=== PATIENT | male | born 1965 | race Hispanic/Latino ===

== ENCOUNTER 2019-04-28 17:11 | Emergency (ER) | payer BC ==
[~2019-04-28] VITALS: Ht 165.1 cm; Wt 72.6 kg
[2019-04-28] MEDS ORDERED: MECLIZINE HCL 12.5 MG TAB PO ONE (18:15)
[2019-04-28] MEDS ORDERED: SODIUM CHLORIDE 0.9% 1000ML 1,000 ML IV SCH (18:15)
[2019-04-28] MEDS ORDERED: PREDNISONE20 MG PO (18:27)
[2019-04-28] MEDS ORDERED: TYLENOL WITH C1 EACH PO (18:28)
[2019-04-28] MEDS ORDERED: MECLIZINE HCL 12.5 MG TAB ONE (18:37)
[2019-04-28] MEDS ORDERED: SODIUM CHLORIDE 0.9% 1000ML 1,000 ML ONE (18:37)
--- NOTE | 2019-04-28 18:38 | NUR ---
REPORT TO PATY ELLIOTT ALL QUESTIONS ANSWERED
--- NOTE | 2019-04-28 18:49 | Diagnostic Imaging Report ---
EXAMINATION: CXR 2 VIEW - HOPD INDICATION: Dizziness COMPARISON: None FINDINGS: PA and lateral views TUBES and LINES: None. LUNGS: Diffuse hyperinflation. There is no evidence of pneumonia or pulmonary edema. PLEURA: No pleural effusion or pneumothorax. HEART AND MEDIASTINUM: The cardiomediastinal silhouette is unremarkable.. BONES AND SOFT TISSUES: Mild dextroscoliosis of the midthoracic spine. No focal osseous lesions. Soft tissues are unremarkable. UPPER ABDOMEN: No free air under the diaphragm. IMPRESSION: Pulmonary hyperinflation suggestive of small airways disease. No acute cardiopulmonary process. Signed by: Dr. Cecy Woodson MD on 04/28/2019 6:46 PM
--- NOTE | 2019-04-28 18:54 | Diagnostic Imaging Report ---
History: Dizziness Comparison studies: None Technique: Axial images were obtained from the skull base to the vertex. Coronal and sagittal reconstructions obtained from the axial data. Dose modulation, iterative reconstruction, and/or weight based adjustment of the mA/kV was utilized to reduce the radiation dose to as low as reasonably achievable. Intravenous contrast: None Findings: Scalp/skull: No abnormalities. No fractures, blastic or lytic lesions. Extra-axial spaces: No masses. No fluid collections. Brain sulci: Appropriate for age. Ventricles: Normal in size and configuration. No hydrocephalus. Parenchyma: No abnormal densities. No masses, hemorrhage, acute or chronic cortical vascular insults. Sellar/suprasellar region: No abnormalities Craniocervical junction: Patent foramen magnum. No Chiari one malformation. IMPRESSION: No abnormalities. Signed by: Dr. Jg Franks M.D. on 04/28/2019 6:51 PM
[2019-04-28] MEDS ORDERED: MECLIZINE HCL12.5 MG PO (19:31)
== END 2019-04-28 19:42 | disposition home or self-care (01) ==
LOC: FSED 17:11
DX: R42 Dizziness and giddiness (principal); I10 Essential (primary) hypertension
CPT/HCPCS: 70450; 71046; 80053; 80307; 81003; 82553; 84484; 85025; 85379; 93005; 99284; J7030; J8597

== ENCOUNTER 2019-07-19 09:16 | Emergency (ER) | payer BC ==
[~2019-07-19] VITALS: Ht 170.2 cm; Wt 71.2 kg
[~2019-07-19 09:16] MED LIST: MECLIZINE HCL12.5 MG PO; PREDNISONE20 MG PO; TYLENOL WITH C1 EACH PO
--- OUTSIDE RECORDS SUMMARY | 2019-07-19 09:19 | XMS REPORT ---
Author Author [facility] Address Unknown Phone Unavailable Care Team Providers Care Production Team Advisor Name Role Phone JAMESYosiClaire Unavailable Unavailable Problems This patient has no known problems. Allergies, Adverse Reactions, Alerts This patient has no known allergies or adverse reactions. Medications This patient has no known medications. Results Test Description Test Time Test Comments Text Results Atomic Results Result Comments CT BRAIN WO-HOPD 2019-04-28 18:50:00 [place] [address] Patient Name: SABA HERNANDEZ MR #: [id number] : 1965 Age/Sex: 53/M Req #: [id number] Adm Physician: Ordered by: MARK PHILLIPS MD Report #: [id number] Location: [facility] Room/Bed: Procedure: [id number] HOPD/CT BRAIN WO-HOPD Exam Date: 04/28/19 Exam Time: 1839 REPORT STATUS: Signed History: Dizziness Comparison studies: None Technique: Axial images were obtained from the skull base to the vertex. Coronal and sagittal reconstructions obtained from the axial data. Dose modulation, iterative reconstruction, and/or weight based adjustment of the mA/kV was utilized to reduce the radiation dose to as low as reasonably achievable. Intravenous contrast: None Findings: Scalp/skull: No abnormalities. No fractures, blastic or lytic lesions. Extra-axial spaces: No masses. No fluid collections. Brain sulci: Appropriate for age. Ventricles: Normal in size and configuration. No hydrocephalus. Parenchyma: No abnormal densities. No masses, hemorrhage, acute or chronic cortical vascular insults. Sellar/suprasellar region: No abnormalities Craniocervical junction: Patent foramen magnum. No Chiari one malformation. IMPRESSION: No abnormalities. Signed by: Dr. Jg Franks M.D. on 04/28/2019 6:51 PM Dictated By: JG FRANKS MD, MD 50 Transcribed By: HIRAM on 04/28/191850 COPY TO: MARK PHILLIPS MD CXR 2 VIEW - HOPD 2019-04-28 18:45:00 [place] [address] Patient Name: SABA HERNANDEZ MR #: [id number] : 1965 Age/Sex: 53/M Req #: [id number] Adm Physician: Ordered by: MARK PHILLIPS MD Report #: [id number] Location: [facility] Room/Bed: Procedure: [id number] HOPD/CXR 2 VIEW - HOPD Exam Date: 04/28/19 Exam Time: 1839 REPORT STATUS: Signed EXAMINATION: CXR 2 VIEW - HOPD INDICATION: Dizziness COMPARISON: None FINDINGS: PA and lateral views TUBES and LINES: None. LUNGS: Diffuse hyperinflation. There is no evidence of pneumonia or pulmonary edema. PLEURA: No pleural effusion or pneumothorax. HEART AND MEDIASTINUM: The cardiomediastinal silhouette is unremarkable.. BONES AND SOFT TISSUES: Mild dextroscoliosis of the midthoracic spine. No focal osseous lesions. Soft tissues are unremarkable. UPPER ABDOMEN: No free air under the diaphragm. IMPRESSION: Pulmonary hyperinflation suggestive of small airways disease. No acute cardiopulmonary process. Signed by: Dr. Cecy Woodson MD on 04/28/2019 6:46 PM Dictated By: CECY WOODSON MD 44 Transcribed By: HIRAM on 04/28/191845 COPY TO: MARK PHILLIPS MD
--- OUTSIDE RECORDS SUMMARY | 2019-07-19 09:19 | XMS REPORT | Summary of Care ---
Author Author [facility] - Health Organization [facility] - Health Address Unknown Phone Unavailable Care Team Providers Care Paving Crew Foreman Name Role Phone Marla Houston PCP Reason for Referral * (KEERTHI) Referred By Contact Referred To Contact Status Reason Specialty Diagnoses / Procedures Marla Houston FNP [address] [place] [address] New Request Cardiology Diagnoses Atrial fibrillation, controlled P rocedures CONSULT/REFERRAL CARDIOLOGY * (Routine) Referred By Contact Referred To Contact Status Reason Specialty Diagnoses / Procedures Marla Houston FNP [address] [place] [address] New Request Cardiology Diagnoses Atrial fibrillation, controlled P rocedures CONSULT CARDIAC EP/HEART RHYTHM CENTER Reason for Visit * Reason Comments Hospital F/U * (Routine) Referred By Contact Referred To Contact Status Reason Specialty Diagnoses / [place] [address] [address] Marla Houston FNP [address] [place] [address] New Request Family Medicine Diagnoses Atrial fibrillation with RVR P rocedures Discharge Follow-up: PCP MARLA HOUSTON; 1 Week Encounter Details Care Team Description Date Type Department Marla Houston FNP [address] [place] [address] Atrial fibrillation, controlled (Primary Dx) 06/20/2019 Office Visit [facility] [address] [facility] [address] [place] [address] Allergies No Known Allergiesdocumented as of this encounter (statuses as of 06/20/2019) Medications End Date Status Medication Sig Dispensed Refills Start Date Active peg-electrolyte soln Take as 4000 mL 0 236-22.74-6.74 -5.86 gram directed 9 solution before colonoscopy 07/13/2019 Active metoprolol tartrate 25 mg Take 1 tablet 90 tablet 0 tabletIndications: Atrial by mouth 3 9 fibrillation with RVR (three) times daily for 30 days. 07/20/2019 Active apixaban (ELIQUIS) 5 mg Take 1 tablet 60 tablet 0 tabletIndications: Atrial by mouth 2 9 fibrillation, controlled (two) times daily for 30 days. 06/20/2019 Discontinued metoprolol tartrate 25 mg Take 1 tablet 90 tablet 0 tabletIndications: Atrial by mouth 3 9 fibrillation with RVR (three) times daily. documented as of this encounter (statuses as of 06/20/2019) Active Problems Problem Noted Date Atrial fibrillation with RVR 06/12/2019 Blood in stool 05/19/2019 Overview: Added automatically from request for surgery [id number] HTN (hypertension), benign 02/10/2019 documented as of this encounter (statuses as of 06/20/2019) Immunizations Name Administration Dates Next Due TDAP (ADACEL) VACCINE 04/29/2019 documented as of this encounter Social History Date Tobacco Use Types Packs/Day Years Used Current Every Day Smoker Cigarettes 0.5 Smokeless Tobacco: Never Used Drinks/Week oz/Week Comments Alcohol Use 2-3 times a week/beer Yes Sex Assigned at Date Recorded Not on file Industry Job Start Date Occupation Not on file Not on file Not on file Travel End Travel History Travel Start No recent travel history available. documented as of this encounter Last Filed Vital Signs Reading Time Taken Comments Vital Sign 124/82 06/20/2019 9:42 AM CDT Blood Pressure 59 06/20/2019 9:42 AM CDT Pulse - - Temperature - - Respiratory Rate 98% 06/20/2019 9:42 AM CDT Oxygen Saturation - - Inhaled Oxygen Concentration 71.3 kg (157 lb 1.6 oz) 06/20/2019 9:42 AM CDT Weight - - Height 24.66 06/14/2019 10:14 AM CDT Body Mass Index documented in this encounter Patient Instructions * Patient Instructions* Marla Houston, HAO - 06/20/2019 9:40 AM CDT Discharge Instructions for Atrial Fibrillation You have been diagnosed with an abnormal heart rhythm called atrial fibrillation .With this condition, your hearts 2 upper chambers quiver rather than squee ze the blood out in a normal pattern. This leads to an irregular and sometimes r apid heartbeat. Some people will develop associated symptoms such as a flip-flop ping heartbeat, chest pain, lightheadedness, or shortness of breath. Other peopl e may have no symptoms at all. Atrial fibrillation is serious because it affects the hearts ability to fill with blood as it should. Blood clots may form. Th is increases the risk for stroke. Untreated atrial fibrillation can also lead to heart failure. Atrial fibrillation can be controlled. Withtreatment, mostpe ople with atrial fibrillation lead normal lives. Treatment options Recommended treatment for atrial fibrillation depends on your age, symptoms, how long you have had atrial fibrillation, and other factors. You will havea comp lete evaluation to find out if you have any abnormalities that caused your heart to go into atrial fibrillation. This might be blocked heart arteries or a thyro id problem. Your doctor will assess your particular case and discuss choices wit h you. Treatment choices may include: Treating an underlyingdisorder that puts you at risk for atrial fibrillatio n. For example, correcting an abnormal thyroid or electrolyte problem, or treati ng a blocked heart artery. Restoring a normal heart rhythm with an electrical shock (cardioversion) or w ith an antiarrhythmic medicine (chemical cardioversion). Using medicine to control your heart rate in atrial fibrillation. Preventing therisk for blood clot and stroke using blood-thinning medicines . Your doctor will tell you what he or sherecommends. Choices may include aspi rin, clopidogrel, warfarin, dabigatran, rivaroxaban, apixaban, and edoxaban. Doing catheter ablation or a surgical maze procedure. Theseuse different me thods to destroy certain areas of heart tissue. This interrupts the electrical s ignals causing atrial fibrillation.One of these procedures may be a choice whe nmedicines do not work, or as an alternative to long-term medicine. Other treatment choices may be recommended for you by your doctor. Managing risk factors for stroke and preventing heart failure are important part s of anytreatment plan for atrial fibrillation. Home care Take your medicines exactly as directed. Dont skip doses. Work with your doctor to find the right medicines and doses for you. Learn to take your own pulse. Keep a record of your results. Ask your doctor which pulse rates mean that you need medical attention. Slowing your pulse is of ten the goal of treatment. Ask your doctor if its OK for you to use an automa tic machine to check your pulse at home. Sometimes these machines dont count the pulse correctly when you have atrial fibrillation. Limit your intake of coffee, tea, cola, and other beverages with caffeine. Ta lkwith your doctor about whether you should eliminate caffeine. Avoid nkvz-xxw-hbwcygz medicines that have caffeine in them. Let your doctor know what medicines you take, including prescription and over -the-counter medicines, as well as any supplements. They interfere with some med icines given for atrial fibrillation. Ask your doctor about whetheryou can drink alcohol. Some people need to steve idalcoholto better treat atrial fibrillation. If you are taking blood-thinne r medicines, alcohol may interfere with them by increasing their effect. Never take stimulants such as amphetamines or cocaine. These drugs can speed upyour heart rate and trigger atrial fibrillation. Follow-up care Follow up with your doctor, or as advised. When should I call my healthcare provider Call your healthcare provider right away if you have any of the following: Weakness Dizziness Fainting Fatigue Shortness of breath Chest pain with increased activity A change in the usual regularity of your heartbeat, or an unusually fast hear tbeat Date Last Reviewed: 03/01/201619993697-8474 [employer]. [address] [place] [address], [place], [place] [address]. All rights reserved. This information is not intended as a substitute for pro fessional medical care. Always follow your healthcare professional's instruction s. Understanding Atrial Fibrillation An arrhythmia is any problem with the speed or pattern of the heartbeat. Atrial fibrillation (AFib) is a common type of arrhythmia. It causes fast, chaotic elec trical signals in the atria. This leads to poor functioning of the heart. It als o affects how much blood your heart can pump out to the body. Afib may occur once in a while and go away on its own. Or it may continue for lo nger periods and need treatment. AFib can lead to serious problems, such as stroke. Your healthcare provider will need to monitor and manage it. What happens during atrial fibrillation? The heart has an electrical system that sends signals to control the heartbeat. As signals move through the heart, they tell the hearts upper chambers (atria ) and lower chambers (ventricles) when to squeeze (contract) and relax. This let s blood move through the heart and out to the body and lungs. With AFib, the atria receive abnormal signals. This causes them to contract in a fast and irregular way, and out of sync with the ventricles. When this happens, the atria also have a harder time moving blood into the ventricles. Blood may t hen pool in the atria, which increases the risk for blood clots and stroke. The ventricles also may contract too quickly and irregularly. As a result, they may not pump blood to the body and lungs as well as they should. This can weaken the heart muscle over time and cause heart failure. What causes atrial fibrillation? AFib is more common in older adults. It has many possible causes including: Coronary artery disease Heart valve disease Heart attack Heart surgery High blood pressure Thyroid disease Diabetes Lung disease Sleep apnea Heavy alcohol use In some cases of AFib, doctors do not know the cause. What are the symptoms of atrial fibrillation? AFib may or may not cause symptoms. If symptoms do occur, they may include: A fast, pounding, irregular heartbeat Shortness of breath Tiredness Dizziness or fainting Chest pain How is atrial fibrillation treated? Treatments for AFib can include any of the options below. Medicines. You may be prescribed: ? Heart rate medicines to help slow down the heartbeat ? Heart rhythm medicines to help the heart beat more regularly ? Anti-clotting medicines to help reduce the risk for blood clots and stroke Electrical cardioversion. Your healthcare provider uses special pads or paddl es to send one or more brief electrical shocks to the heart. This can help reset the heartbeat to normal. Ablation. Long, thin tubes called catheters are threaded through a blood vess el to the heart. There, the catheters send out hot or cold energy to the areas c ausing the abnormal signals. This energy destroys the problem tissue or cells. T his improves the chances that your heart will stay in normal rhythm without usin g medicines. If your heart rate and rhythm cant be controlled, you may need a blation and a pacemaker. These will help control the heart rate and regularity o f the heartbeat. Surgery. During surgery, your healthcare provider may use different methods t o create scar tissue in the areas of the heart causing the abnormal signals. The scar tissue disrupts the abnormal signals and may stop AFib from occurring. What are the complications of atrial fibrillation? These can include: Blood clots Stroke Heart failure. This problem occurs when the heart muscle weakens so much that it can no longer pump blood well. When should I call my healthcare provider? Call your healthcare provider right away if you have any of these: Symptoms that dont get better with treatment, or get worse New symptoms Date Last Reviewed: 03/09/201619998097-2261 [employer]. [address] [place] [address] 7. All rights reserved. This information is not intended as a substitute for pro fessional medical care. Always follow your healthcare professional's instruction s. documented in this encounter Progress Notes * Marla Houston FNP - 06/20/2019 9:40 AM CDT Transitional Care Management: Urbt-ls-Svwq Visit 06/20/2019 Moisés Delgado is a 53 year old male that was admitted on 06/11/19 to [facility] ([facility]. He was discharged on 06/15/19 with a discharge disposition of HR- Routine Discharge. Moisés is here today for a hospital foll ow-up/transitional care management visit. CC: Hospital F/U Patient here for the following condition: Hospital follow up Location: chest Duration: 1 week Severity: no pain Context: Patient admitted for atrial fibrillation with RVR. He was seen by Cardi ology and electrophysiology. He was converted back into sinus rhythm with medica tions. He remains in sinus juan alberto. He was given lovenox in hospital but not sent home with aspirin or blood thinners. Quality: improved Modifying factors: avoiding alcohol, lopressor Associated symptoms: none Timing: am=pm Patient was brought by self. Patient is speaking complete sentences and normal t one. Denies chest pain, shortness of breath, dizziness, weakness or palpitations . Allergies Moisés has No Known Allergies. Medications Outpatient Medications Prior to Visit Medication Sig Dispense Refill metoprolol tartrate 25 mg tablet Take 1 tablet by mouth 3 (three) times rosetta y for 30 days. (Patient taking differently: Take 25 mg by mouth 2 (two) times da yuriy.) 90 tablet 0 metoprolol tartrate 25 mg tablet Take 1 tablet by mouth 3 (three) times rosetta y. 90 tablet 0 peg-electrolyte soln 236-22.74-6.74 -5.86 gram solution Take as directed bef ore colonoscopy 4000 mL 0 No facility-administered medications prior to visit. Histories Past Medical History: Diagnosis Date Hypertension Past Surgical History: Procedure Laterality Date FRACTURE SURGERY L wrist fracture as a kid Social History Socioeconomic History Marital status: Spouse name: Not on file Number of children: Not on file Years of education: Not on file Highest education level: Not on file Occupational History Not on file Social Needs Financial resource strain: Not on file Food insecurity: Worry: Not on file Inability: Not on file Transportation needs: Medical: Not on file Non-medical: Not on file Tobacco Use Smoking status: Current Every Day Smoker Packs/day: 0.50 Types: Cigarettes Smokeless tobacco: Never Used Substance and Sexual Activity Alcohol use: Yes Comment: 2-3 times a week/beer Drug use: No Sexual activity: Not on file Lifestyle Physical activity: Days per week: Not on file Minutes per session: Not on file Stress: Not on file Relationships Social connections: Talks on phone: Not on file Gets together: Not on file Attends protestant service: Not on file Active member of club or organization: Not on file Attends meetings of clubs or organizations: Not on file Relationship status: Not on file Intimate partner violence: Fear of current or ex partner: Not on file Emotionally abused: Not on file Physically abused: Not on file Forced sexual activity: Not on file Other Topics Concern Not on file Social History Narrative Not on file Family History Problem Relation Age of Onset Psychiatry Father Colon Cancer NoFHx Review of Systems Constitutional: Negative for chills, diaphoresis, fatigue and fever. HENT: Negative for congestion, ear pain, sinus pressure, sore throat and trouble swallowing. Eyes: Negative for pain, redness and itching. Respiratory: Negative for cough, chest tightness, shortness of breath and wheezi ng. Cardiovascular: Negative for chest pain, palpitations and leg swelling. Gastrointestinal: Negative for abdominal distention, blood in stool, constipatio n, diarrhea, nausea and vomiting. Genitourinary: Negative for dysuria, urgency, polyuria, frequency, hematuria and difficulty urinating. Musculoskeletal: Negative for arthralgias, back pain, gait problem, joint swelli ng, myalgias, neck pain and neck stiffness. Skin: Negative for color change, pallor and rash. Neurological: Negative for dizziness, syncope, weakness, numbness and headaches. Psychiatric/Behavioral: Negative for agitation, confusion, sleep disturbance and suicidal ideas. The patient is not nervous/anxious. Hematological: Negative for adenopathy. Does not bruise/bleed easily. Endocrine: Negative for goiter, polydipsia, polyphagia and polyuria. Physical Exam Constitutional: He is oriented to person, place, and time. He appears well-devel oped and well-nourished. No distress. HENT: Head: Atraumatic. Nose: Nose normal. Mouth/Throat: Oropharynx is clear and moist. Eyes: Pupils are equal, round, and reactive to light. Conjunctivae and EOM are n ormal. Neck: Normal range of motion. Neck supple. No JVD present. No tracheal deviation present. Cardiovascular: Normal rate, regular rhythm, normal heart sounds and intact dist al pulses. No murmur heard. Pulmonary/Chest: Effort normal and breath sounds normal. No respiratory distress . He has no wheezes. Abdominal: Soft. Bowel sounds are normal. He exhibits no distension. There is no rebound and no guarding. No hernia. Musculoskeletal: Normal range of motion. He exhibits no edema, tenderness or def ormity. Neurological: He is alert and oriented to person, place, and time. No sensory de ficit. Coordination normal. Skin: Skin is warm and dry. Capillary refill takes less than 2 seconds. No rash noted. He is not diaphoretic. Psychiatric: He has a normal mood and affect. His behavior is normal. Judgment a nd thought content normal. Nursing note and vitals reviewed. Vitals: 06/20/19 0942 BP: 124/82 BP Location: Left arm Patient Position: Sitting Pulse: 59 SpO2: 98% Weight: 157 lb 1.6 oz (71.3 kg) Assessment/Plan 1. Atrial fibrillation, controlled (primary encounter diagnosis) Plan: CONSULT CARDIAC EP/HEART RHYTHM CENTER, CONSULT/REFERRAL CARDIOLOGY, apixaban (ELIQUIS) 5 mg tablet Start Eliquis. If unable to get from pharmacy start Aspirin 325 mg. Follow up with Cardiology Follow up with Electrophysiology ER for any worsening or concerns Continue Lopressor I certify that the following are true: Discharge records, pending tests and lab results reviewed: Yes Medications reviewed and reconciled: Yes Patient education provided to: patient Follow-up arranged with other healthcare providers needed in patient's care: Yes Established applicable referrals: Yes Complexity of medical decision making is: Medium Linked Episodes Type: Episode: Status: Noted: Resolved: Last update: Updated by: TRANSITION OF CARE tcm Active 06/15/2019 06/17/2019 3:57 PM Henna Jacobs RN Comments:06/15/2019 Plan of care, desired health behaviors, goals and medications discussed with dylan mead and educational resources and self-management tools provided. Patient/famil y/guardian voices understanding. Barriers to care: none Ability to manage care: good As necessary, prescribed medications and potential significant medication side e ffects or medication interactions were discussed with the patient and pt will le t me know if any occur. Call or return to clinic prn if these symptoms worsen or fail to improve as anti cipated. Call or report to ER if symptoms should symptoms progress or worsen. The patient indicates understanding of these issues and agrees with the plan. AVS printed and given to patient/family/guardian Marla Houston RN, BSN, [employer] GROUNDS CHECKER [facility] [address] [place] [address] Office: [phone] documented in this encounter Plan of Treatment Care Team Description Date Type Specialty Diana Ortiz MD [address] [place] [phone] 07/12/2019 Office Visit Gastroenterology Yusuf Marla, [employer] CHECKER [address] [place] [address] 07/15/2019 Office Visit Family Medicine Rodolfo Porras MD [id number] [place], [place] [address] 08/16/2019 Office Visit Cardiology Health Maintenance Due Date Last Done Comments HEPATITIS C (HCV) SCREEN 1965 PNEUMOCOCCAL 0-64 YEARS 1970 COMBINED SERIES (1 of 1 - PPSV23) Zoster Recombinant 2014 Vaccine (SHINGRIX) (1 of 2) INFLUENZA VACCINE 07/10/2019 COLONOSCOPY 02/12/2025 02/12/2015 DTaP,Tdap,and Td Vaccines 04/29/2029 04/29/2019 (2 - Td) documented as of this encounter Results Not on filedocumented in this encounter Visit Diagnoses Diagnosis Atrial fibrillation, controlled - Primary Atrial fibrillation documented in this encounter Insurance Type Payer Benefit Subscriber ID Effective Phone Address Plan / Dates Group PPO/POS [employer] [place] BCBS OF [id number] 2016-P [phone] P [facility] [id number] OUT OF [facility] [address] (Home) [place] [address] documented as of this encounter
--- OUTSIDE RECORDS SUMMARY | 2019-07-19 09:19 | XMS REPORT | Summary of Care ---
Author Author [facility] - Health Organization [facility] - Health Address Unknown Phone Unavailable Care Team Providers Care Reimbursement Rep Name Role Phone Marla Houston PCP Reason for Referral * (Routine) Referred By Contact Referred To Contact Status Reason Specialty Diagnoses / [place] [address] [facility] [address] [place] [address] Marla Houston FNP [address] [place] [address] New Request Diagnoses Atrial fibrillation with RVR P rocedures Discharge Follow-up: PCP MARLA HOUSTON; 1 Week * (Routine) Referred By Contact Referred To Contact Status Reason Specialty Diagnoses / Procedures Terry Nation MD 2019 [facility] [address] [place] [address] New Request UNKNOWN Diagnoses PHYSICIAN Atrial SPECIALTY fibrillation with RVR P rocedures Discharge Follow-Up: Specialty Service UNKNOWN PHYSICIAN SPECIALTY; 1 Week * (Routine) Referred By Contact Referred To Contact Status Reason Specialty Diagnoses / Procedures Judith Carcamo ACNP [address] [facility] [address] [phone] Marla Houston FNP [address] [place] [address] New Request Diagnoses Atrial fibrillation with RVR P rocedures Discharge Follow-up: PCP MARLA HOUSTON; 1 Week * Radiology Services (Routine) Referred By Contact Referred To Contact Status Reason Specialty Diagnoses / Procedures Rosario Brower MD [address] [place] [address] [place] [phone] New Request Diagnostic Diagnoses Radiology Atrial fibrillation with RVR HTN (hypertension), benign Blood in stool P rocedures NM MYOCARDIUM PERFUSION STRESS AND REST * Radiology Services (Routine) Referred By Contact Referred To Contact Status Reason Specialty Diagnoses / Procedures Rosario Brower MD [address] [place] [address] [place], [place] [phone] New Request Diagnostic Diagnoses Radiology Atrial fibrillation with RVR HTN (hypertension), benign Blood in stool P rocedures NM MYOCARDIUM PERFUSION STRESS AND REST * Radiology Services (STAT) Referred By Contact Referred To Contact Status Reason Specialty Diagnoses / Procedures Marlys Randall MD [address] [phone] New Request Diagnostic Diagnoses Radiology Atrial fibrillation with RVR P rocedures XR CHEST 1 VW * Radiology Services (STAT) Referred By Contact Referred To Contact Status Reason Specialty Diagnoses / Procedures Marlys Randall MD [address] [address] New Request Diagnostic Diagnoses Radiology Atrial fibrillation with RVR P rocedures XR CHEST 1 VW Reason for Visit * Reason Comments Heart Problem * Auth/Cert Referred By Contact Referred To Contact Status Reason Specialty Diagnoses / Procedures [facility] Emergency Dept [address] [place] [phone] Emergency Medicine Encounter Details Care Team Description Date Type Department Marlys Randall MD [address] [phone] Diana Arita MD [address] [place] [address] [place] [address] [place] [address] [phone] Atrial fibrillation with RVR 06/11/2019 [facility] Intensive - Encounter Care Unit CLC 7A 06/15/2019 [address] [place] [address] Allergies No Known Allergiesdocumented as of this encounter (statuses as of 06/15/2019) Medications End Date Status Medication Sig Dispensed Refills Start Date Active peg-electrolyte soln Take as 4000 mL 0 [id number] -5.86 gram directed 9 solution before colonoscopy 07/13/2019 Active metoprolol tartrate 25 mg Take 1 tablet 90 tablet 0 tabletIndications: Atrial by mouth 3 9 fibrillation with RVR (three) times daily for 30 days. Active metoprolol tartrate 25 mg Take 1 tablet 90 tablet 0 tabletIndications: Atrial by mouth 3 9 fibrillation with RVR (three) times daily. 06/13/2019 Discontinued lisinopril 10 mg Take 1 tablet 30 tablet 2 tabletIndications: HTN by mouth 9 (hypertension), benign daily for 90 days. documented as of this encounter (statuses as of 06/15/2019) Active Problems Problem Noted Date Atrial fibrillation with RVR 06/12/2019 Blood in stool 05/19/2019 Overview: Added automatically from request for surgery [id number] HTN (hypertension), benign 02/10/2019 documented as of this encounter (statuses as of 06/15/2019) Immunizations Name Administration Dates Next Due TDAP (ADACEL) VACCINE 04/29/2019 documented as of this encounter Social History Date Tobacco Use Types Packs/Day Years Used Current Every Day Smoker Cigarettes 0.5 Smokeless Tobacco: Never Used Tobacco Cessation: Ready to Quit: Yes; Counseling Given: Yes Drinks/Week oz/Week Comments Alcohol Use 2-3 times a week/beer Yes Sex Assigned at Date Recorded Not on file Industry Job Start Date Occupation Not on file Not on file Not on file Travel End Travel History Travel Start No recent travel history available. documented as of this encounter Last Filed Vital Signs Reading Time Taken Comments Vital Sign 136/94 06/15/2019 3:25 PM CDT Blood Pressure 50 06/15/2019 3:25 PM CDT Pulse 36.9 C (98.4 F) 06/15/2019 3:25 PM CDT Temperature 18 06/15/2019 3:25 PM CDT Respiratory Rate 100% 06/15/2019 3:25 PM CDT Oxygen Saturation - - Inhaled Oxygen Concentration 73.5 kg (162 lb 0.6 oz) 06/14/2019 12:34 PM CDT Weight 170 cm (5' 6.93") 06/14/2019 10:14 AM CDT Height 25.43 06/14/2019 10:14 AM CDT Body Mass Index documented in this encounter Discharge Instructions * Attachments The following attachments cannot be sent through Care Everywhere.* Atrial Fibrillation, Discharge Instructions for (Moldovan) * Atrial Flutter/Fibrillation, What Is (Moldovan) * Atrial Fibrillation, Understanding (Moldovan) * Identifying Your Heart Risks (Moldovan) * Bradycardia, Understanding (Moldovan) * Cardiac Catheterization, Bleeding or Hematoma After (Moldovan) * Eating Heart-Healthy Foods (Moldovan) * Heart Medicines, Common (Moldovan) * Heart Medicines, Taking (Moldovan) documented in this encounter Progress Notes * Ryley Jacobo MD - 06/15/2019 12:16 PM CDT [facility] Progress Note Dr. Ryley Jacobo Subjective: Patient seen & examined. Events reviewed. Objective: Vitals: 06/14/19 2355 06/15/19 0334 06/15/19 0656 06/15/19 1123 BP: 120/76 123/73 (!) 136/92 (!) 138/91 Pulse: 52 59 50 53 Resp: 16 16 18 17 Temp: 36.1 C (96.9 F) 36.3 C (97.4 F) 36.6 C (97.8 F) 36.9 C (98.5 F) TempSrc: Skin Skin Skin Skin SpO2: 96% 97% 100% 100% Weight: Height: General: awake, alert, no distress HEENT: NC, AT, PERRLA, EOMI, MMM, anicteric sclera Neck: no JVD/lymphadenopathy CV: RRR, no murmurs, rubs, gallops Lungs: clear to auscultation bilaterally Abdomen: soft, NT, ND, (+)BS Skin: no rashes Extremities: no clubbing, cyanosis, edema Neuro: CN 2-12 intact, no focal deficits Psych: oriented x 3, normal affect Labs: Recent Results (from the past 48 hour(s)) THYROID STIMULATING HORMONE Collection Time: 06/14/19 5:09 AM Result Value Ref Range TSH 1.66 0.45 - 4.70 mIU/L aPTT Collection Time: 06/14/19 5:09 AM Result Value Ref Range APTT Patient 30 26 - 36 Seconds BASIC METABOLIC PANEL (NA, K, CL, CO2, GLUCOSE, BUN, CREATININE, CA) Collection Time: 06/14/19 5:09 AM Result Value Ref Range NA 136 135 - 145 mmol/L K 4.1 3.5 - 5.0 mmol/L CL 103 98 - 108 mmol/L CO2 TOTAL 26 23 - 31 mmol/L AGAP 7 2 - 16 BUN 12 7 - 23 mg/dL GLUCOSE 105 70 - 110 mg/dL CREATININE 0.81 0.60 - 1.25 mg/dL CALCIUM 9.5 8.6 - 10.6 mg/dL eGFR Calculation (Non-) 99.3 mL/min/1.73m2 eGFR Calculation () 120.4 mL/min/1.73m2 PROTHROMBIN TIME / INR Collection Time: 06/14/19 5:09 AM Result Value Ref Range PROTIME PATIENT 11.2 10.1 - 12.6 Seconds INR 1.0 CBC WITH DIFFERENTIAL Collection Time: 06/14/19 5:09 AM Result Value Ref Range WBC 4.32 4.20 - 10.70 10*3/L RBC 4.21 (L) 4.26 - 5.52 10*6/L HGB 13.7 12.2 - 16.4 g/dL HCT 40.0 38.4 - 49.3 % MCV 95.0 81.7 - 95.6 fL MCH 32.5 26.1 - 32.7 pg MCHC 34.3 31.2 - 35.0 g/dL RDW-SD 42.4 38.5 - 51.6 fL RDW-CV 12.1 12.1 - 15.4 % PLT 197 150 - 328 10*3/L MPV 10.1 9.8 - 13.0 fL NRBC/100 WBC 0.0 0.0 - 10.0 /100 WBCs NRBC x10^3 <0.01 10*3/L GRAN MAT (NEUT) % 50.1 % IMM GRAN % 0.20 % LYMPH % 35.4 % MONO % 12.0 % EOS % 1.6 % BASO % 0.7 % GRAN MAT x10^3(ANC) 2.16 1.99 - 6.95 10*3/uL IMM GRAN x10^3 <0.03 0.00 - 0.06 10*3/uL LYMPH x10^3 1.53 1.09 - 3.23 10*3/uL MONO x10^3 0.52 0.36 - 1.02 10*3/uL EOS x10^3 0.07 0.06 - 0.53 10*3/uL BASO x10^3 0.03 0.01 - 0.09 10*3/uL Current Facility-Administered Medications: famotidine (PEPCID AC) tablet 20 mg, 20 mg, Oral, BID, Nacho Gamble MD, 20 mg at 06/15/19 0824 LORazepam (ATIVAN) tablet 1 mg, 1 mg, Oral, Q4HPRN, Nacho Gamble MD metoprolol (LOPRESSOR) injection 5 mg, 5 mg, Slow IV Push, Q1HPRN, Nacho Gamble MD metoprolol tartrate (LOPRESSOR) tablet 25 mg, 25 mg, Oral, TID, Jeronimo Baugh MD, Stopped at 06/15/19 0800 Assessment: Moisés Delgado is a 53 year old male admitted with: Paroxysmal Atrial fibrillation Hypertension, uncontrolled Anxiety disorder Gastroesophageal reflux disease Plan: S/P heart catheter Appreciate cardiology follow-up Planning EPS today at 1:30 PM We'll follow up post EPS Plan discharge home when stable and cleared by cardiology Further recommendations based on clinical course Ryley Jacobo MD 06/15/2019 12:16 PM * Rosario Browre MD - 06/15/2019 11:26 AM CDT [facility] Cardiology progress note Date of Service: 06/15/2019 Moisés Delgado is a 53 year old male hospitalized for atrial fibrillation with RVR. Feeling well. No new cardiac complaints noted. PHYSICAL EXAM Vitals: 06/14/19 2355 06/15/19 0334 06/15/19 0656 06/15/19 1123 BP: 120/76 123/73 (!) 136/92 (!) 138/91 Pulse: 52 59 50 53 Resp: 16 16 18 17 Temp: 36.1 C (96.9 F) 36.3 C (97.4 F) 36.6 C (97.8 F) 36.9 C (98.5 F) TempSrc: Skin Skin Skin Skin SpO2: 96% 97% 100% 100% Weight: Height: General: no apparent distress HEENT: normocephalic atraumatic Neck: supple, no lymphadenopathy, no bruits, no JVD Lungs: clear to auscultation bilaterally Cardio: S1, S2, regular; no murmurs, rubs or gallops Abdomen: non-distended : not examined Rectal: not examined Extremities: no clubbing, cyanosis, or edema Skin: no rashes Neuro: no focal deficits Medications: I have reviewed the patient's medications; see Medication Reconciliation. Labs: I have reviewed the patient's labs. ASSESSMENT AND PLAN Active Problems: HTN (hypertension), benign Atrial fibrillation with RVR PAF: CHADS-VASc score 1 Currently in SR. Reviewed EP consult note. Plan for EP study today. PVT: No sig arrhythmias noted. Continue Toprol 25 mg TID. Plan for EP study toda y. HTN: Stable. Slightly elevated. On toprol 25 TID. May change it to extended rele ase as the time of DC Rx plan discussed with the patient. Aiden Brower MD 06/15/2019 11:26 AM Director Of Testing, Division of Cardiology [facility] * Dimitri Keane MD - 06/14/2019 1:38 PM CDT Cardiac EP [facility] Note Reason for Evaluation / Chief Complaint: atrial fibrillation and pVT Referring Provider: Dr. Baugh Subjective/hospital progress: he states he feels better today. Denies cp, dizzi ness, or syncope. Past HPI: Moisés Delgado is a 53 year old male with h/o htn, tobacco use, caffe ine use, etoh use, admitted to [facility] for sob and atrial fibrillation. We are asked to see as new consult. He stated he had episode 06-11-2019 of palpitations, sob, and dizziness. He came to ER and was found to be in atrial fibrillation with rvr. He denied cp, syncope, pnd, orthopnea. 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 In the past was without limitations; however, over the past month he has noted episodes of dizziness wi th standing that improved with lying down. He denied palpitations prior to 2018. He smokes 1 ppd, drinks 5-6 beers per day, and 2-3 caffeinated beverages per day. Past Medical History: Diagnosis Date Hypertension Social History Socioeconomic History Marital status: Spouse [...] file Gets together: Not on file Attends pentecostal service: Not on file Active member of [...] of Onset Psychiatry Father Colon Cancer NoFHx No Known Allergies Current Facility-Administered Medications Medication Dose Route Frequency Last Rate Last Dose NaCl 0.9% (NS) IV infusion 1,000 mL 1,000 mL IV Infusion CONTINUOUS enoxaparin (LOVENOX) injection 70 mg 1 mg/kg Subcutaneous Q12HA1 Stopped at 06/14/19 0000 famotidine (PEPCID AC) tablet 20 mg 20 mg Oral BID 20 mg at 06/13/192001 LORazepam (ATIVAN) tablet 1 mg 1 mg Oral Q4HPRN metoprolol (LOPRESSOR) injection 5 mg 5 mg Slow IV Push Q1HPRN metoprolol tartrate (LOPRESSOR) tablet 25 mg 25 mg Oral TID Stopped at 0800 Review of Systems: General: denies complaint Eyes: denies complaint Ears/Nose/Mouth/Throat: denies complaint Cardiovascular: as per hpi Respiratory: +snoring Gastrointestinal: denies complaint Genital/urinary: denies complaint Musculoskeletal: denies complaint Skin: denies complaint Neurologic: denies complaint Psychiatric: denies complaint Endocrine: denies complaint Hematologic: denies complaint Allergy/Immunology: denies complaint Physical Exam: Vitals: Vitals: 06/14/19 1145 06/14/19 1200 06/14/19 1234 06/14/19 1250 BP: (!) 153/81 133/86 135/83 Pulse: 51 53 51 Resp: 14 12 17 Temp: 36.8 C (98.2 F) TempSrc: Oral SpO2: 98% 97% 99% Weight: 73.5 kg (162 lb 0.6 oz) Height: Appearance: Well developed and well nourished male in no acute distress. Cardiovascular: regular rate and regular rhythm; no rubs or gallops; no murmur. Respiratory: clear to auscultation bilateral Extremities: No edema Musculoskeletal: full range of motion, and ambulates without assistance. Neurologic: Alert and oriented x 4; no gross abnormalities. Psychiatric: Pleasant, no suicidal or homicidal ideation. LABS / DATA: CBC WBC (10*3/L) Date Value 06/14/2019 4.32 RBC (10*6/L) Date Value 06/14/2019 4.21 (L) PLT (10*3/L) Date Value 06/14/2019 197 HGB (g/dL) Date Value 06/14/2019 13.7 HCT (%) Date Value 06/14/2019 40.0 BMP NA (mmol/L) Date Value 06/14/2019 136 K (mmol/L) Date Value 06/14/2019 4.1 CALCIUM (mg/dL) Date Value 06/14/2019 9.5 CL (mmol/L) Date Value 06/14/2019 103 BUN (mg/dL) Date Value 06/14/2019 12 CREATININE (mg/dL) Date Value 06/14/2019 0.81 GLUCOSE (mg/dL) Date Value 06/14/2019 105 CO2 TOTAL (mmol/L) Date Value 06/14/2019 26 Hepatic Function Panel ALBUMIN (g/dL) Date Value 06/11/2019 4.4 T PROTEIN (g/dL) Date Value 06/11/2019 7.4 TOTAL BILI (mg/dL) Date Value 06/11/2019 0.4 No results found for: BILIUNCON No results found for: BILICONJ ALT(SGPT) (U/L) Date Value 06/11/2019 20 AST(SGOT) (U/L) Date Value 06/11/2019 20 ALK PHOS (U/L) Date Value 06/11/2019 56 PROTIME PATIENT (Seconds) Date Value 06/14/2019 11.2 TSH (mIU/L) Date Value 06/14/2019 1.66 EC06-13-19: sb at 50 bpm; pr 130ms; qrs 94ms; qtc 386ms 06-12-19: atrial fibrillation rvr 154bpm 06-11-19: atrial fibrillation rvr 151bpm; qrs 98ms; +PVC -v1+2 Telemetry/Holter/Loop Monitor: 06-13-19: nsr with 3 beat pVT 06-12-19: 34 beats wide complex tachycardia regular Echocardiogram: 06-12-19: LA 2.8cm; LV 0.99cm thick; LVEF 55-60% Cardiac Cath: 06-14-2019: no cad and LVEF 60% Stress Testin06-13-2019: nuclear stress: LVEF 43%; + reversible defect Impression: paroxysmal atrial fibrillation now in normal sinus rhythm. Episodes of pVT. LVEF ranges from 43% to 60% depending on testing modality. Nuclear wi th areas of reversible and fixed defects; however, cardiac cath without CAD. In light of pVT, cardiomyopathy, and dizziness episodes, will recommend EP study to further evaluate and risk stratify. Informed consent was discussed with the p atient, including: condition, proposed care, treatments and services, alternativ e options and forms of treatment, as well as risks of no treatment. Details wer e discussed around the procedures/treatments to be used and the risks and hazard s involved including but not limited to pain, bleeding, infection, damage to the heart, lung, and/or blood vessels requiring surgery, kidney failure, heart andree ck, stroke, or . We also discussed potential benefits and side effects of the patient's proposed treatment plan; the likelihood of the patient achieving t heir goals; and any potential problems that might occur during recuperation. Th ey expressed understanding and are agreeable to proceed with the recommendations . Recommendation(s): 1. As above 2. Npo after midnight 3. Plan eps for 1:30pm 06-15-2019 Thank you for allowing us to participate in the care of your patient. Please fe el free to contact us for any questions or if we can be of further assistance. Dimitri Keane MD 06/14/2019 1:42 PM * Judith Carcamo, [facility] - 06/14/2019 1:15 PM CDT [facility] Progress Note Dr. Ryley Jacobo Subjective: Patient seen & examined. Events reviewed. Objective: Vitals: 06/14/19 1145 06/14/19 1200 06/14/19 1234 06/14/19 1250 BP: (!) 153/81 133/86 135/83 Pulse: 51 53 51 Resp: 14 12 17 Temp: 36.8 C (98.2 F) TempSrc: Oral SpO2: 98% 97% 99% Weight: 73.5 kg (162 lb 0.6 oz) Height: General: awake, alert, no distress HEENT: NC, AT, PERRLA, EOMI, MMM, anicteric sclera Neck: no JVD/lymphadenopathy CV: RRR, no murmurs, rubs, gallops Lungs: clear to auscultation bilaterally Abdomen: soft, NT, ND, (+)BS Skin: no rashes Extremities: no clubbing, cyanosis, edema Neuro: CN 2-12 intact, no focal deficits Psych: oriented x 3, normal affect Labs: Recent Results (from the past 48 hour(s)) TROPONIN I Collection Time: 06/13/19 8:44 AM Result Value Ref Range TROPONIN I 0.004 <=0.034 ng/mL THYROID STIMULATING HORMONE Collection Time: 06/14/19 5:09 AM Result Value Ref Range TSH 1.66 0.45 - 4.70 mIU/L aPTT Collection Time: 06/14/19 5:09 AM Result Value Ref Range APTT Patient 30 26 - 36 Seconds BASIC METABOLIC PANEL (NA, K, CL, CO2, GLUCOSE, BUN, CREATININE, CA) Collection Time: 06/14/19 5:09 AM Result Value Ref Range NA 136 135 - 145 mmol/L K 4.1 3.5 - 5.0 mmol/L CL 103 98 - 108 mmol/L CO2 TOTAL 26 23 - 31 mmol/L AGAP 7 2 - 16 BUN 12 7 - 23 mg/dL GLUCOSE 105 70 - 110 mg/dL CREATININE 0.81 0.60 - 1.25 mg/dL CALCIUM 9.5 8.6 - 10.6 mg/dL eGFR Calculation (Non-) 99.3 mL/min/1.73m2 eGFR Calculation () 120.4 mL/min/1.73m2 PROTHROMBIN TIME / INR Collection Time: 06/14/19 5:09 AM Result Value Ref Range PROTIME PATIENT 11.2 10.1 - 12.6 Seconds INR 1.0 CBC WITH DIFFERENTIAL Collection Time: 06/14/19 5:09 AM Result Value Ref Range WBC 4.32 4.20 - 10.70 10*3/L RBC 4.21 (L) 4.26 - 5.52 10*6/L HGB 13.7 12.2 - 16.4 g/dL HCT 40.0 38.4 - 49.3 % MCV 95.0 81.7 - 95.6 fL MCH 32.5 26.1 - 32.7 pg MCHC 34.3 31.2 - 35.0 g/dL RDW-SD 42.4 38.5 - 51.6 fL RDW-CV 12.1 12.1 - 15.4 % PLT 197 150 - 328 10*3/L MPV 10.1 9.8 - 13.0 fL NRBC/100 WBC 0.0 0.0 - 10.0 /100 WBCs NRBC x10^3 <0.01 10*3/L GRAN MAT (NEUT) % 50.1 % IMM GRAN % 0.20 % LYMPH % 35.4 % MONO % 12.0 % EOS % 1.6 % BASO % 0.7 % GRAN MAT x10^3(ANC) 2.16 1.99 - 6.95 10*3/uL IMM GRAN x10^3 <0.03 0.00 - 0.06 10*3/uL LYMPH x10^3 1.53 1.09 - 3.23 10*3/uL MONO x10^3 0.52 0.36 - 1.02 10*3/uL EOS x10^3 0.07 0.06 - 0.53 10*3/uL BASO x10^3 0.03 0.01 - 0.09 10*3/uL Current Facility-Administered Medications: NaCl 0.9% (NS) IV infusion 1,000 mL, 1,000 mL, IV Infusion, CONTINUOUS, Boc Susan collado, HAO enoxaparin (LOVENOX) injection 70 mg, 1 mg/kg, Subcutaneous, Q12HA1, Nacho Hansen MD, Stopped at 06/14/19 0000 famotidine (PEPCID AC) tablet 20 mg, 20 mg, Oral, BID, Nacho Gamble MD, 20 mg at 06/13/192001 LORazepam (ATIVAN) tablet 1 mg, 1 mg, Oral, Q4HPRN, Nacho Gamble MD metoprolol (LOPRESSOR) injection 5 mg, 5 mg, Slow IV Push, Q1HPRN, Nacho Gamble MD metoprolol tartrate (LOPRESSOR) tablet 25 mg, 25 mg, Oral, TID, Jeronimo Baugh MD, Stopped at 06/14/19 0800 Assessment: Moisés Delgado is a 53 year old male admitted with: Atrial fibrillation Possible ETOH palipitations Plan: S/P heart catheter Pending consult with EP Monitor on telemetry Bed rest per cardio after cath Further recommendations based on clinical course FAB Caro 06/14/2019 1:15 PM * Amadou Szymanski MD - 06/14/2019 11:05 AM CDT Dict number [id number], [id number] Cath: normal coronary arteries, lvef 60%, lvedp 60% Manual hemostasis; Ok to go home after 5 pm today. Rec: medical therapy per Dr Brower. * Rosario Brower MD - 06/14/2019 8:19 AM CDT [facility] Cardiology progress note Date of Service: 06/14/2019 Moisés Delgado is a 53 year old male hospitalized for atrial fibrillation. Feel ing well. PHYSICAL EXAM Vitals: 06/14/19 0000 06/14/19 0400 06/14/19 0700 06/14/19 0806 BP: 119/75 124/75 120/82 122/74 Pulse: 56 55 58 Resp: 15 16 18 16 Temp: 36.7 C (98 F) 36.1 C (97 F) 36.8 C (98.2 F) 36.1 C (97 F) TempSrc: Tympanic Tympanic Oral SpO2: 96% 97% 98% 98% Weight: 73.5 kg (162 lb) Height: 1.702 m (5' 7") General: no apparent distress HEENT: normocephalic atraumatic Neck: supple, no lymphadenopathy, no bruits, no JVD Lungs: clear to auscultation bilaterally Cardio: S1, S2, regular; no murmurs, rubs or gallops Abdomen: non-distended : not examined Rectal: not examined Extremities: no clubbing, cyanosis, or edema Skin: no rashes Neuro: no focal deficits Medications: I have reviewed the patient's medications; see Medication Reconciliation. Labs: I have reviewed the patient's labs. ASSESSMENT AND PLAN Active Problems: HTN (hypertension), benign Atrial fibrillation with RVR PAF: CHADS-VASc score 1 Currently in SR. Reviewed EP consult note. Continue Toprol 25 mg TID Abn stress test: cath done today showed no obs CAD. PVT: plan for EP study today. HTN: On toprol 25 TID. May change it to extended release as the time of DC Rx plan discussed with the patient. Aiden Brower MD Director Of Testing, Division of Cardiology [facility] * Shelli Bradley LMSW - 06/13/2019 3:22 PM CDT Care Management Social Functional Assessment Patient Name: Moisés Delgado Age: [age] year old Sex: male N Previous admit date: N/A Current diagnosis and co-morbidities: ATRIAL FIBRILLATION WITH RVR Readmission Questions: Was patient discharged from any acute care hospital within the last 30 days: No Social Functional Assessment: Primary language spoken/preferred: Moldovan Mental Status: Alert & Oriented to Person,Place & Time Information given by: Self Patient's support system: Parent Name and number of support system: MARY PATI melquiades [phone] Primary Brim Presser: Self MPOA: No Living Arrangement: Home Address of living arrangement : [address] [place] [address] Persons living in home: Self Baseline functional status- ambulation: Independent Functional status-baseline personal care: Independent Baseline functional status- driving: Independent Baseline functional status- grocery shopping: Independent Functional status-baseline housekeeping: Independent Functional status-baseline meal prep: Independent Current functional status same as prior: Yes Do you have a PCP?: Yes Name of PCP: Marla Houston FNP Home Health Care Agency: No Provider Services: No DME Company: No Funding Resources: Commercial Prescription coverage plan: [facility] Pharmacy where meds are filled: Other Other pharmacy: [facility] Anticipated services prior to disharge: Continue Medical Eval;Reassess prior to discharge Expected mode of discharge transportation: Family Additional Recommendations for DC: none needed. Additional info required for discharge planning: Pending medical evaluation Recommended discharge plan: Home SFA Complete: Social Functional Assessment complete: Yes Alcohol Use Screening (AUDIT-C) How often do you have a drink containing alcohol?: Never SCORE: 0 Role of Care Management explained. Shelli Bradley LMSW Social Work/Care Management Office.[phone]. Cell. [phone] Email. [email or web address] * Susan Schneider FNP - 06/13/2019 11:31 AM CDT Non-Invasive Cardiac Testing Date of test: 06/13/2019 Referring MD: Oh Baugh MD Procedure Performed: Nuclear Medicine Stress Timeout performed: YES Medication injected: Lexiscan IV Pre-test BP & HR: 140/87 53 Post-test BP & HR: 137/92 66 Pre EKG: Sinus rhythm Post EKG: Sinus Rhythm, no ST changes, no arrhythmias, no ectopy Complications: NONE Symptoms: Headache (03/18) After informed consent, patient was placed on monitoring with serial EKGS and vi tals. IV Lexiscan 0.4mg/5 mL given. Patient complained of MARQUEZ (03/18). After the p rocedure, the patient stayed with the monitoring nurse and tech for imaging. Pat ient was in no acute distress with respirations even and unlabored. * Rosario Brower MD - 06/13/2019 10:11 AM CDT [facility] Cardiology progress note Date of Service: 06/13/2019 Moisés Delgado is a 53 year old male hospitalized for Afib with RVR. Feeling we ll. Remains in SR. PHYSICAL EXAM Vitals: 06/12/19 2000 06/13/19 0000 06/13/19 0400 06/13/19 0708 BP: 124/83 114/74 115/75 121/71 Pulse: 63 59 64 62 Resp: 18 18 17 17 Temp: 36.9 C (98.4 F) 36.3 C (97.4 F) 35.9 C (96.6 F) 36.2 C (97.1 F) TempSrc: Oral Oral Tympanic Tympanic SpO2: 98% 97% 99% 97% Weight: Height: General: no apparent distress HEENT: normocephalic atraumatic Neck: supple, no lymphadenopathy, no bruits, no JVD Lungs: clear to auscultation bilaterally Cardio: S1, S2, regular; no murmurs, rubs or gallops Abdomen: non-distended : not examined Rectal: not examined Extremities: no clubbing, cyanosis, or edema Skin: no rashes Neuro: no focal deficits Medications: I have reviewed the patient's medications; see Medication Reconciliation. Labs: I have reviewed the patient's labs. ASSESSMENT AND PLAN Active Problems: HTN (hypertension), benign Atrial fibrillation with RVR PAF: CHADS-VASc score 1 Currently in SR. Reviewed EP consult note. Second trop negative. Plan for NM stress test today. Continue Toprol 25 mg TID HTN: On toprol 25 TID. May change it to extended release as the time of DC WCT noted in tele: Ischemic evaluation today with NM stress test. Rx plan discussed with the patient. Aiden Brower MD 06/13/2019 10:11 AM Director Of Testing, Division of Cardiology [facility] * Marlene Leggett MD - 06/12/2019 12:36 PM CDT [facility] Progress Note Dr. Marlene Leggett 06/12/2019 Subjective: Patient seen & examined. Events reviewed. Objective: Temp: [36.9 C (98.4 F)-37.1 C (98.7 F)] Heart Rate (monitor): [62-122] Pulse: [62-159] Resp: [16-18] BP: (110-148)/(62-116) MAP (mmHg): [96-98] General: awake, alert, no distress HEENT: NC, AT, PERRLA, EOMI, MMM, anicteric sclera Neck: no JVD/lymphadenopathy CV: RRR, no murmurs, rubs, gallops Lungs: clear to auscultation bilaterally Abdomen: soft, NT, ND, (+)BS Skin: no rashes Extremities: no clubbing, cyanosis, edema Neuro: CN 2-12 intact, no focal deficits Psych: oriented x 3, normal affect Labs: Recent Results (from the past 24 hour(s)) COMP. METABOLIC PANEL (79170) Collection Time: 06/11/19 11:09 PM Result Value Ref Range NA 137 135 - 145 mmol/L K 3.9 3.5 - 5.0 mmol/L CL 100 98 - 108 mmol/L CO2 TOTAL 24 23 - 31 mmol/L AGAP 13 2 - 16 BUN 9 7 - 23 mg/dL GLUCOSE 86 70 - 110 mg/dL CREATININE 0.92 0.60 - 1.25 mg/dL TOTAL BILI 0.4 0.1 - 1.1 mg/dL CALCIUM 9.8 8.6 - 10.6 mg/dL T PROTEIN 7.4 6.3 - 8.2 g/dL ALBUMIN 4.4 3.5 - 5.0 g/dL ALK PHOS 56 34 - 122 U/L ALT(SGPT) 20 9 - 51 U/L AST(SGOT) 20 13 - 40 U/L eGFR Calculation (Non-) 85.7 mL/min/1.73m2 eGFR Calculation () 103.9 mL/min/1.73m2 MAGNESIUM Collection Time: 06/11/19 11:09 PM Result Value Ref Range MAGNESIUM 1.9 1.7 - 2.4 mg/dL TROPONIN I Collection Time: 06/11/19 11:09 PM Result Value Ref Range TROPONIN I 0.004 <=0.034 ng/mL CBC WITH DIFFERENTIAL Collection Time: 06/11/19 11:09 PM Result Value Ref Range WBC 4.61 4.20 - 10.70 10*3/L RBC 4.37 4.26 - 5.52 10*6/L HGB 14.3 12.2 - 16.4 g/dL HCT 42.1 38.4 - 49.3 % MCV 96.3 (H) 81.7 - 95.6 fL MCH 32.7 26.1 - 32.7 pg MCHC 34.0 31.2 - 35.0 g/dL RDW-SD 43.9 38.5 - 51.6 fL RDW-CV 12.4 12.1 - 15.4 % PLT 207 150 - 328 10*3/L MPV 10.1 9.8 - 13.0 fL NRBC/100 WBC 0.0 0.0 - 10.0 /100 WBCs NRBC x10^3 <0.01 10*3/L GRAN MAT (NEUT) % 55.7 % IMM GRAN % 0.20 % LYMPH % 29.3 % MONO % 13.7 % EOS % 0.4 % BASO % 0.7 % GRAN MAT x10^3(ANC) 2.57 1.99 - 6.95 10*3/uL IMM GRAN x10^3 <0.03 0.00 - 0.06 10*3/uL LYMPH x10^3 1.35 1.09 - 3.23 10*3/uL MONO x10^3 0.63 0.36 - 1.02 10*3/uL EOS x10^3 <0.03 (L) 0.06 - 0.53 10*3/uL BASO x10^3 0.03 0.01 - 0.09 10*3/uL Current Facility-Administered Medications: enoxaparin (LOVENOX) injection 70 mg, 1 mg/kg, Subcutaneous, Q12HA1, Nacho Hansen MD famotidine (PEPCID AC) tablet 20 mg, 20 mg, Oral, BID, Nacho Gamble MD, 20 mg at 06/12/19 0916 lactated ringers IV infusion 1,000 mL, 1,000 mL, Intravenous, ONCE, Marlys Randall MD LORazepam (ATIVAN) tablet 1 mg, 1 mg, Oral, Q4HPRN, Nacho Gamble MD metoprolol (LOPRESSOR) injection 5 mg, 5 mg, Slow IV Push, Q1HPRN, Nacho Gamble MD metoprolol tartrate (LOPRESSOR) tablet 25 mg, 25 mg, Oral, TID, Jeronimo Baugh MD, 25 mg at 06/12/19 1124 Assessment: Moisés Delgado is a 53 year old male admitted with: Atrial fibrillation with RVR Palpitations - cardiology consulted, appreciate your help - rate control for now and will consult EP - lopressor 25mg tid - AC started - TTE pending HTN acoholism - ativan PRN if withdrawal symptoms Marlene Leggett MD [facility] documented in this encounter Plan of Treatment Care Team Description Date Type Specialty Diana Ortiz MD [address] [place] [phone] 07/12/2019 Office Visit Gastroenterology Marla Houston, [employer] EXEC[employer]IVE [address] [place] [address] 07/15/2019 Office Visit Family Medicine Rodolfo Porras MD [facility] [place] [address] [phone] 08/16/2019 Office Visit Cardiology Order Schedule Name Type Priority Associated Diagnoses ONCE for 1 Occurrences starting 06/13/2019 until 06/13/2019 EKG-12 LEAD ROUTINE HEART STATION Routine Health Maintenance Due Date Last Done Comments HEPATITIS C (HCV) SCREEN 1965 PNEUMOCOCCAL 0-64 YEARS 1970 COMBINED SERIES (1 of 1 - PPSV23) Zoster Recombinant 2014 Vaccine (SHINGRIX) (1 of 2) INFLUENZA VACCINE 07/10/2019 COLONOSCOPY 02/12/2025 02/12/2015 DTaP,Tdap,and Td Vaccines 04/29/2029 04/29/2019 (2 - Td) documented as of this encounter Procedures Comments Procedure Name Priority Date/Time Associated Diagnosis CATH PROCEDURE LOG Routine 06/15/2019 1:53 PM CDT CATH PROCEDURE LOG Routine 06/14/2019 10:40 AM CDT CBC WITH DIFFERENTIAL Routine 06/14/2019 5:09 AM CDT ACTIVATED PARTIAL Routine 06/14/2019 THRMPLAS NASIR 5:09 AM CDT PROTHROMBIN TIME / INR Routine 06/14/2019 5:09 AM CDT CBC WITH DIFF Routine 06/14/2019 5:09 AM CDT BASIC METABOLIC PANEL Routine 06/14/2019 (NA, K, CL, CO2, GLUCOSE, 5:09 AM CDT BUN, CREATININE, CA) THYROID STIMULATING STAT 06/14/2019 Atrial fibrillation with HORMONE 5:09 AM CDT RVR NM MYOCARDIUM PERFUSION Routine 06/13/2019 Atrial fibrillation with STRESS AND REST 12:31 PM CDT RVR HTN (hypertension), benign Blood in stool TROPONIN I STAT 06/13/2019 8:44 AM CDT EKG-12 LEAD Routine 06/13/2019 6:15 AM CDT ECHO ROUTINE W/DOPPLER Routine 06/12/2019 Atrial fibrillation with COLOR 10:48 AM CDT RVR XR CHEST 1 VW STAT 06/11/2019 Atrial fibrillation with 11:20 PM CDT RVR CBC WITH DIFFERENTIAL STAT 06/11/2019 Atrial fibrillation with 11:09 PM CDT RVR EXTRA TUBE LT. BLUE STAT 06/11/2019 11:09 PM CDT CBC WITH DIFF STAT 06/11/2019 Atrial fibrillation with 11:09 PM CDT RVR COMP. METABOLIC PANEL STAT 06/11/2019 Atrial fibrillation with ([id number]) 11:09 PM CDT RVR FREE T4 STAT 06/11/2019 Atrial fibrillation with 11:09 PM CDT RVR TROPONIN I STAT 06/11/2019 Atrial fibrillation with 11:09 PM CDT RVR MAGNESIUM STAT 06/11/2019 Atrial fibrillation with 11:09 PM CDT RVR EKG-12 LEAD Routine 06/11/2019 11:07 PM CDT EKG-12 LEAD Routine 06/11/2019 10:58 PM CDT documented in this encounter Results * CBC WITH DIFFERENTIAL (06/14/2019 5:09 AM CDT) WBC 4.32 4.20 - 10.70 [facility] 10*3/L [facility] RBC 4.21 (L) 4.26 - 5.52 10*6/L [facility] HGB 13.7 12.2 - 16.4 g/dL [facility] HCT 40.0 38.4 - 49.3 % [facility] MCV 95.0 81.7 - 95.6 fL [facility] MCH 32.5 26.1 - 32.7 pg [facility] MCHC 34.3 31.2 - 35.0 g/dL [facility] RDW-SD 42.4 38.5 - 51.6 fL [facility] RDW-CV 12.1 12.1 - 15.4 % [facility] PLT 197 150 - 328 10*3/L [facility] MPV 10.1 9.8 - 13.0 fL [facility] NRBC/100 WBC 0.0 0.0 - 10.0 /100 WBCs [facility] NRBC x10^3 <0.01 10*3/L [facility] GRAN MAT (NEUT) 50.1 % [facility] % [facility] IMM GRAN % 0.20 % [facility] LYMPH % 35.4 % [facility] MONO % 12.0 % [facility] EOS % 1.6 % [facility] BASO % 0.7 % [facility] GRAN MAT 2.16 1.99 - 6.95 10*3/uL [facility] x10^3(ANC) [facility] IMM GRAN x10^3 <0.03 0.00 - 0.06 10*3/uL [facility] LYMPH x10^3 1.53 1.09 - 3.23 10*3/uL [facility] MONO x10^3 0.52 0.36 - 1.02 10*3/uL [facility] EOS x10^3 0.07 0.06 - 0.53 10*3/uL [facility] BASO x10^3 0.03 0.01 - 0.09 10*3/uL [facility] Specimen Blood - LINE, VENOUS Performing Organization Address City/State/Zipcode Phone Number [facility] CLIA: [id number], [address] [place] [address] [facility] * PROTHROMBIN TIME / INR (06/14/2019 5:09 AM CDT) PROTIME PATIENT 11.2 10.1 - 12.6 Seconds [facility] INR 1.0Comment: Normal INR <1.1; [facility] Warfarin Therapeutic range 2.0 [facility] to 3.0 or 2.5 to 3.5, [facility] depending upon the indications. Specimen Blood - LINE, VENOUS Performing Organization Address City/State/Zipcode Phone Number [facility] CLIA: [id number], [address] [place] [address] [facility] * BASIC METABOLIC PANEL (NA, K, CL, CO2, GLUCOSE, BUN, CREATININE, CA) (06/14/2019 5:09 AM CDT) NA 136 135 - 145 mmol/L [facility] K 4.1 3.5 - 5.0 mmol/L [facility] CL 103 98 - 108 mmol/L [facility] CO2 TOTAL 26 23 - 31 mmol/L [facility] AGAP 7 2 - 16 [facility] BUN 12 7 - 23 mg/dL [facility] GLUCOSE 105 70 - 110 mg/dL [facility] CREATININE 0.81 0.60 - 1.25 mg/dL [facility] CALCIUM 9.5 8.6 - 10.6 mg/dL [facility] eGFR 99.3 mL/min/1.73m2 [facility] Calculation [facility] ([facility]) eGFR 120.4 mL/min/1.73m2 [facility] Calculation [facility] ([facility]) Specimen Blood - LINE, VENOUS Narrative Performed At Association of Glomerular Filtration Rate (GFR) and Staging of Kidney Disease* [facility] + + + + [facility] | GFR (mL/min/1.73 m2)| With Kidney Damage|Without Kidney Damage CAMPUS + + + + |>90|Stage one| Normal + + + + |60-89|Stage two| Decreased GFR + + + + |30-59|Stage three| Stage three + + + + |15-29|Stage four | Stage four + + + + |<15 (or dialysis)|Stage five | Stage five + + + + *Each stage assumes the associated GFR level has been in effect for at least three months.Stages 1 to 5, with or without kidney disease, indicate chronic kidney disease. Notes: Determination of stages one and two (with eGFR >59mL/min/1.73 m2) requires estimation of kidney damage for at least three months as defined by structural or functional abnormalities of the kidney, manifested by either: Pathological abnormalities or Markers of kidney damage (including abnormalities in the composition of the blood or urine or abnormalities in imaging tests). Performing Organization Address City/State/Zipcode Phone Number [facility] CLIA: [id number], [address] [place] [address] [facility] * aPTT (06/14/2019 5:09 AM CDT) APTT Patient 30 26 - 36 Seconds [facility] Specimen Blood - LINE, VENOUS Performing Organization Address City/[facility]/Zipcode Phone Number [facility] CLIA: [id number], [address] [place] [address] [facility] * THYROID STIMULATING HORMONE (06/14/2019 5:09 AM CDT) TSH 1.66Comment: Biotin has been 0.45 - 4.70 mIU/L [facility] reported to cause a negative SERVICES-CLEAR bias, interpret results [facility] relative to patient's use of biotin. Specimen Blood - LINE, VENOUS Performing Organization Address [facility] Phone Number [facility] CLIA: [id number], [address] [place] [address] [facility] * NM MYOCARDIUM PERFUSION STRESS AND REST (06/13/2019 12:31 PM CDT) Specimen Impressions Performed At 1.The patient's electrocardiogram is nonischemic. PACS/VR/DOSE 2.The patient's clinical response is asymptomatic for angina. 3.Overall left ventricular systolic function is mildly reduced. 4.SPECT imaging reveals shows mild size, moderate degree reversible defect in basal, mid inferior septal wall segments. 5.SPECT imaging reveals shows moderate size, moderate degree fixed defect in basal to apical inferior wall segments. Narrative Performed At * * * * * * * * ORIGINAL REPORT * * * * * * * * PACS/VR/DOSE [facility] Nuclear Lexiscan Stress Test Report PROCEDURE: After obtaining witnessed informed consent, patient underwent a Regadenoson nuclear stress test using a one-day protocol. The patient was administered 0.4 mg. Regadenoson over 10 seconds intravenously. Myocardial perfusion SPECT imaging was performed at rest after the intravenous injection of 11.37mCi of Technetium 99m Tetrofosmin. During the stress portion of the test 33.00 mCi of Technetium 99m Tetrofosmin was injected intravenously at 10 seconds after the Regadenoson infusion at peak pharmacologic effect. The stress gated SPECT study was acquired. Both stress and rest images were acquired with patient being supine. Images were processed according to ASN guidelines. Short, horizontal long, long axis slices, raw data cines, polar plot, and wall motion analysis were reviewed. FINDINGS: *During the Regadenoson administration, no symptoms were noted. *Please refer ECG report for full details. *The overall technical quality of the study is good. *Raw cine data reveals no significant normality. *SPECT imaging reveals shows mild size, moderate degree reduced uptake of radiopharmaceutical agents basal, mid inferior septal wall segments in stress images but not in rest images. *SPECT imaging reveals shows moderate size, moderate degree reduced uptake of radiopharmaceutical agents basal to apical inferior wall segments in both stress images and rest images. *Rest of the SPECT imaging reveals shows normal uptake of radiopharmaceutical agents in all of wall segments in both stress and rest images. *Post-stress LV end-diastolic volume is 79 ml and LV end-systolic volume is 43 ml. *The left ventricle ejection fraction is calculated to be 43 % at stress and 45 % at rest. *Regional wall motion analysis of the left ventricle is normal. *TID: 1.16 Procedure Note [facility], Radiant Results Inft User - 06/13/2019 4:30 PM CDT * * * * * * * * ORIGINAL REPORT * * * * * * * * [facility] Lexiscan Stress Test Report PROCEDURE: After obtaining witnessed informed consent, patient underwent a Regadenoson nuclear stress test using a one-day protocol. The patient was administered 0.4 mg. Regadenoson over 10 seconds intravenously. Myocardial perfusion SPECT imaging was performed at rest after the intravenous injection of 11.37 mCi of Technetium 99m Tetrofosmin. During the stress portion of the test 33.00 mCi of Technetium 99m Tetrofosmin was injected intravenously at 10 seconds after the Regadenoson infusion at peak pharmacologic effect. The stress gated SPECT study was acquired. Both stress and rest images were acquired with patient being supine. Images were processed according to [facility] guidelines. Short, horizontal long, long axis slices, raw data cines, polar plot, and wall motion analysis were reviewed. FINDINGS: * During the Regadenoson administration, no symptoms were noted. * Please refer ECG report for full details. * The overall technical quality of the study is good. * Raw cine data reveals no significant normality. * SPECT imaging reveals shows mild size, moderate degree reduced uptake of radiopharmaceutical agents basal, mid inferior septal wall segments in stress images but not in rest images. * SPECT imaging reveals shows moderate size, moderate degree reduced uptake of radiopharmaceutical agents basal to apical inferior wall segments in both stress images and rest images. * Rest of the SPECT imaging reveals shows normal uptake of radiopharmaceutical agents in all of wall segments in both stress and rest images. * Post-stress LV end-diastolic volume is 79 ml and LV end-systolic volume is 43 ml. * The left ventricle ejection fraction is calculated to be 43 % at stress and 45 % at rest. * Regional wall motion analysis of the left ventricle is normal. * TID: 1.16 IMPRESSION 1. The patient's electrocardiogram is nonischemic. 2. The patient's clinical response is asymptomatic for angina. 3. Overall left ventricular systolic function is mildly reduced. 4. SPECT imaging reveals shows mild size, moderate degree reversible defect in basal, mid inferior septal wall segments. 5. SPECT imaging reveals shows moderate size, moderate degree fixed defect in basal to apical inferior wall segments. Performing Organization Address [facility] Phone Number PACS/VR/DOSE * TROPONIN I (06/13/2019 8:44 AM CDT) TROPONIN I 0.004 <=0.034 ng/mL [facility] Specimen Blood - ARM, RIGHT Narrative Performed At Equal or Less than 0.034 ng/ml---Normal [facility] Note: Cardiac troponin begins to rise 3-4 hours after the onset of ischemia. [facility] Repeat in 4-6 hours if the sample was drawn within 3-4 hours of the onset of the CAMPUS symptom and found normal. Between 0.035 and 0.120 ng/mL--- Borderline. Questionable myocardial injury or necrosis Note: Serial measurement may be necessary to confirm or exclude the diagnosis of myocardial injury or necrosis; Clinical correlation (symptoms, EKGs, imaging studies, and others) required; Repeat in 4-6 hours if clinically indicated. Equal or Higher than 0.121 ng/mL---Abnormal. Myocardial Injury or Necrosis Likely Biotin has been reported to cause a negative bias, interpret results relative to patient's use of biotin. Performing Organization Address [facility]/Zipcode Phone Number [facility] CLIA: [id number], [address] [place] [address] [facility] * XR CHEST 1 VW (06/11/2019 11:20 PM CDT) Specimen Impressions Performed At Impression: PACS/VR/DOSE No radiographic evidence for acute cardiopulmonary disease. RL: [id number] AFC: [id number] Narrative Performed At Indication: Chest pain PACS/VR/DOSE Comparison: None Findings: Single AP view of the chest. The cardiopericardial silhouette is within normal limits. The lungs are clear bilaterally. The visualized bony thorax is intact. Procedure Note [facility], Radiant Results Inft User - 06/11/2019 11:36 PM CDT Indication: Chest pain Comparison: None Findings: Single AP view of the chest. The cardiopericardial silhouette is within normal limits. The lungs are clear bilaterally. The visualized bony thorax is intact. IMPRESSION Impression: No radiographic evidence for acute cardiopulmonary disease. RL: [id number] AFC: [id number] Performing Organization Address [facility] Phone Number PACS/VR/DOSE * EXTRA TUBE LT. BLUE (06/11/2019 11:09 PM CDT) Specimen Blood Performing Organization Address [facility] Phone Number [facility] CLIA: [id number], [address] [place] [address] [facility] * FREE T4 (06/11/2019 11:09 PM CDT) FREE T4 1.06 0.78 - 2.20 ng/dL: [facility] Specimen Blood - VENOUS Performing Organization Address [facility] Phone Number [facility] CLIA: [id number], [address] [place] [address] * CBC WITH DIFFERENTIAL (06/11/2019 11:09 PM CDT) WBC 4.61 4.20 - 10.70 [facility] 10*3/L [facility] RBC 4.37 4.26 - 5.52 10*6/L [facility] HGB 14.3 12.2 - 16.4 g/dL [facility] HCT 42.1 38.4 - 49.3 % [facility] MCV 96.3 (H) 81.7 - 95.6 fL [facility] MCH 32.7 26.1 - 32.7 pg [facility] MCHC 34.0 31.2 - 35.0 g/dL [facility] RDW-SD 43.9 38.5 - 51.6 fL [facility] RDW-CV 12.4 12.1 - 15.4 % [facility] PLT 207 150 - 328 10*3/L [facility] MPV 10.1 9.8 - 13.0 fL [facility] NRBC/100 WBC 0.0 0.0 - 10.0 /100 WBCs [facility] NRBC x10^3 <0.01 10*3/L [facility] GRAN MAT (NEUT) 55.7 % [facility] % [facility] IMM GRAN % 0.20 % [facility] LYMPH % 29.3 % [facility] MONO % 13.7 % [facility] EOS % 0.4 % [facility] BASO % 0.7 % [facility] GRAN MAT 2.57 1.99 - 6.95 10*3/uL [facility] x10^3(ANC) [facility] IMM GRAN x10^3 <0.03 0.00 - 0.06 10*3/uL [facility] LYMPH x10^3 1.35 1.09 - 3.23 10*3/uL [facility] [place] x10^3 0.63 0.36 - 1.02 10*3/uL [facility] EOS x10^3 <0.03 (L) 0.06 - 0.53 10*3/uL [facility] BASO x10^3 0.03 0.01 - 0.09 10*3/uL [facility] Specimen Blood - VENOUS Performing Organization Address [facility] Phone Number [facility] CLIA: [id number], [address] [place], [place] [id number] [facility] * TROPONIN I (06/11/2019 11:09 PM CDT) TROPONIN I 0.004 <=0.034 ng/mL [facility] Specimen Blood - VENOUS Narrative Performed At Equal or Less than 0.034 ng/ml---Normal [facility] Note: Cardiac troponin begins to rise 3-4 hours after the onset of ischemia. [facility] Repeat in 4-6 hours if the sample was drawn within 3-4 hours of the onset of the KELLY[place] symptom and found normal. Between 0.035 and 0.120 ng/mL--- Borderline. Questionable myocardial injury or necrosis Note: Serial measurement may be necessary to confirm or exclude the diagnosis of myocardial injury or necrosis; Clinical correlation (symptoms, EKGs, imaging studies, and others) required; Repeat in 4-6 hours if clinically indicated. Equal or Higher than 0.121 ng/mL---Abnormal. Myocardial Injury or Necrosis Likely Biotin has been reported to cause a negative bias, interpret results relative to patient's use of biotin. Performing Organization Address [facility] Phone Number [facility] CLIA: [id number], [address] [place], [place] [address] [facility] * MAGNESIUM (06/11/2019 11:09 PM CDT) MAGNESIUM 1.9 1.7 - 2.4 mg/dL [facility] Specimen Blood - VENOUS Performing Organization Address [facility] Phone Number [facility] CLIA: [id number], [address] [place], [place] [address] [facility] * COMP. METABOLIC PANEL ([id number]) (06/11/2019 11:09 PM CDT) NA 137 135 - 145 mmol/L [facility] K 3.9 3.5 - 5.0 mmol/L [facility] CL 100 98 - 108 mmol/L [facility] CO2 TOTAL 24 23 - 31 mmol/L [facility] AGAP 13 2 - 16 [facility] BUN 9 7 - 23 mg/dL [facility] GLUCOSE 86 70 - 110 mg/dL [facility] CREATININE 0.92 0.60 - 1.25 mg/dL [facility] TOTAL BILI 0.4 0.1 - 1.1 mg/dL [facility] CALCIUM 9.8 8.6 - 10.6 mg/dL [facility] T PROTEIN 7.4 6.3 - 8.2 g/dL [facility] ALBUMIN 4.4 3.5 - 5.0 g/dL [facility] ALK PHOS 56 34 - 122 U/L [facility] ALT(SGPT) 20 9 - 51 U/L [facility] AST(SGOT) 20 13 - 40 U/L [facility] eGFR 85.7 mL/min/1.73m2 [facility] eGFR 103.9 mL/min/1.73m2 [facility] Calculation [facility] ([facility]) Specimen Blood - VENOUS Narrative Performed At Association of Glomerular Filtration Rate (GFR) and Staging of Kidney Disease* [facility] + + + + [facility] | GFR (mL/min/1.73 m2)| With Kidney Damage|Without Kidney Damage CAMPUS + + + + |>90|Stage one| Normal + + + + |60-89|Stage two| Decreased GFR + + + + |30-59|Stage three| Stage three + + + + |15-29|Stage four | Stage four + + + + |<15 (or dialysis)|Stage five | Stage five + + + + *Each stage assumes the associated GFR level has been in effect for at least three months.Stages 1 to 5, with or without kidney disease, indicate chronic kidney disease. Notes: Determination of stages one and two (with eGFR >59mL/min/1.73 m2) requires estimation of kidney damage for at least three months as defined by structural or functional abnormalities of the kidney, manifested by either: Pathological abnormalities or Markers of kidney damage (including abnormalities in the composition of the blood or urine or abnormalities in imaging tests). Performing Organization Address City/State/Zipcode Phone Number [facility] CLIA: [id number], [address] [place] [address] [facility] documented in this encounter Visit Diagnoses Diagnosis Atrial fibrillation with RVR - Primary Atrial fibrillation HTN (hypertension), benign Essential hypertension, benign Blood in stool documented in this encounter Administered Medications Action Date Dose Rate Site Medication Order [facility] 06/15/2019 8:24 AM CDT 20 mg famotidine (PEPCID AC) tablet 20 mg Given 20 mg, Oral, BID, First dose on 06/12/19 at 0800, Until Discontinued, Routine 20 mg Given 06/14/2019 8:44 PM CDT 20 mg Given 06/13/2019 8:02 PM CDT LORazepam (ATIVAN) tablet 1 mg 1 mg, Oral, Q4HPRN, Starting 06/12/19 at 0118, Until Discontinued, Routine, Agitation metoprolol (LOPRESSOR) injection 5 mg 5 mg, Slow IV Push, Q1HPRN, Starting 06/12/19 at 0342, Until Discontinued, Routine, HR >130 06/14/2019 8:44 PM CDT 25 mg metoprolol tartrate (LOPRESSOR) tablet Given 25 mg 25 mg, Oral, TID, First dose on 06/12/19 at 2000, Until Discontinued, Routine 25 mg Given 06/13/2019 8:02 PM CDT 25 mg Given 06/13/2019 9:15 AM CDT Action Date Dose Rate Site Medication Order [facility] 06/11/2019 11:10 PM CDT 20 mg Right Arm diltiazem (CARDIZEM IV) injection 20 mg Given 20 mg, IV Push, ONCE, 1 dose, 06/12/19 at 0015, STAT, ground operations crew member approving Restricted medication: MARLYS RANDALL 06/12/2019 1:07 AM CDT 20 mg Right Arm diltiazem (CARDIZEM IV) injection 20 mg Given 20 mg, IV Push, ONCE, 1 dose, [place] 06/12/19 at 0215, STAT, ground operations crew member approving Restricted medication: MARLYS RANDALL 06/12/2019 1:07 AM CDT 60 mg diltiazem (CARDIZEM) tablet 60 mg Given 60 mg, Oral, Q6H, 1 dose, First dose on Thu06/12/19 at 0115, Routine 06/14/2019 3:32 PM CDT 70 mg Abdomen-SC enoxaparin (LOVENOX) injection 70 mg Given 70 mg (rounded from 73.6 mg=1 mg/kg 73.6 kg), Subcutaneous, Q12HA1, First dose on Thu06/12/19 at 1200, Until Discontinued, KEERTHI 70 mg Abdomen-SC Given 06/13/2019 3:03 PM CDT 70 mg Abdomen-SC Given 06/13/2019 1:39 AM CDT 06/12/2019 12:14 AM CDT 73.6 mg Abdomen enoxaparin (LOVENOX) injection 73.6 mg Given 73.6 mg (1 mg/kg 73.6 kg), Subcutaneous, ONCE, 1 dose, Randolph 06/12/19 at 0030, KEERTHI 06/14/2019 10:39 AM CDT 25 mcg FENTanyl PF (SUBLIMAZE (PF)) injection Given Slow IV Push, PRN, Starting Thu06/14/19 at 1031, Until Thu06/14/19 at 1039, Routine 25 mcg Given 06/14/2019 10:31 AM CDT 06/11/2019 11:16 PM CDT 1,000 mL 999 mL/hr Right Arm lactated ringers IV infusion 1,000 mL New Bag at 999 mL/hr, 1,000 mL, Intravenous, ONCE, 1 dose, 06/12/19 at 0015, Routine 06/14/2019 10:40 AM CDT 9 mL lidocaine 1% (PF) (XYLOCAINE) injection Given Infiltration, PRN, Starting Thu06/14/19 at 1040, Until Thu06/14/19 at 1040, Routine 06/15/2019 1:54 PM CDT 10 mL lidocaine 1% (PF) (XYLOCAINE) injection Given Infiltration, PRN, Starting Thu06/15/19 at 1354, Until Thu06/15/19 at 1354, Routine 06/12/2019 11:24 AM CDT 25 mg metoprolol tartrate (LOPRESSOR) tablet Given 25 mg 25 mg, Oral, TID, First dose on Thu06/12/19 at 1115, Until Discontinued, Routine 06/14/2019 10:39 AM CDT 1 mg midazolam (VERSED) injection Given IV Push, PRN, Starting Thu06/14/19 at 1030, Until Thu06/14/19 at 1039, Routine 1 mg Given 06/14/2019 10:30 AM CDT 06/14/2019 10:54 AM CDT 200 mL 999 mL/hr NaCl 0.9% (NS) bolus infusion New Bag IV Piggyback, CONTINUOUS PRN, Starting Thu06/14/19 at 1054, Until Thu06/14/19 at 1054, STAT 06/14/2019 3:32 PM CDT 1,000 mL 75 mL/hr NaCl 0.9% (NS) IV infusion 1,000 mL New Bag at 75 mL/hr, IV Infusion, CONTINUOUS, Starting Thu06/14/19 at 1145, Until Thu06/14/19 at 1744, Routine 06/13/2019 11:21 AM CDT 0.4 mg Regadenoson (LEXISCAN) injection 0.4 mg Given 0.4 mg, Slow IV Push, ONCE, 1 dose, Thu06/13/19 at 1230, Routine, ground operations crew member approving Restricted medication: SUSAN SCHNEIDER 06/13/2019 10:13 AM CDT 11.37 millicuries tc 99m-tetrofosmin (MYOVIEW) injection Given 11.37 millicurie 11.37 millicurie, Intravenous, ONCE, 1 dose, 06/13/19 at 1145, Routine 06/13/2019 11:21 AM CDT 33 millicuries tc 99m-tetrofosmin (MYOVIEW) injection Given 33 millicurie 33 millicurie, Intravenous, ONCE, 1 dose, Thu06/13/19 at 1300, Routine documented in this encounter Insurance Type Payer Benefit Subscriber ID Effective Phone Address Plan / Dates Group PPO/POS BC[place] OF [place] BCBS OF [id number] 2016-P [phone] P O [facility] [id number] OUT OF [place] [id number] (Ennice) [place] [address] documented as of this encounter
--- OUTSIDE RECORDS SUMMARY | 2019-07-19 09:19 | XMS REPORT | Summary of Care ---
Author Author [facility] - Health Organization [facility] - Health Address Unknown Phone Unavailable Care Team Providers Care Hydrodynamics Teacher Name Role Phone Jessy Goldberg BUSINESS TEACHER PCP Reason for Visit * Reason Comments Transition Of Care Encounter Details Care Team Description Date Type Department Henna Jacobs, LEXI [address] [place] [id number] Transition Of Care 06/16/2019 Transition [facility] Allergies No Known Allergiesdocumented as of this encounter (statuses as of 06/17/2019) Medications End Date Status Medication Sig Dispensed [...] as of this encounter (statuses as of 06/17/2019) Active Problems Problem Noted Date Atrial fibrillation with RVR 06/12/2019 Blood in stool 05/19/2019 Overview: Added automatically from request for surgery [id number] HTN (hypertension), benign 02/10/2019 documented as of this encounter (statuses as of 06/17/2019) Immunizations Name Administration Dates Next Due TDAP [...] of this encounter Last Filed Vital Signs Not on filedocumented in this encounter Plan of Treatment Care Team Description Date Type Specialty Saima Goldbergica, [facility] [address] [place] [address] 06/20/2019 Office Visit Family Medicine Diana Ortiz MD [address] [place] [address]. [place] [address] 07/12/2019 Office Visit Gastroenterology Jessy Goldberg, [facility] [address] [place] [address] 07/15/2019 Office Visit Family Medicine Rodolfo Porras MD [address] [facility] [id number] [place], [place] [id number] 08/16/2019 Office Visit Cardiology Health Maintenance Due Date Last Done Comments HEPATITIS C (HCV) SCREEN 1965 PNEUMOCOCCAL 0-64 YEARS 1970 COMBINED SERIES (1 of 1 - PPSV23) Zoster Recombinant 2014 Vaccine (SHINGRIX) (1 of 2) INFLUENZA VACCINE 07/10/2019 COLONOSCOPY 02/12/2025 02/12/2015 DTaP,Tdap,and Td Vaccines 04/29/2029 04/29/2019 (2 - Td) documented as of this encounter Results Not on filedocumented in this encounter Insurance Type Payer Benefit Subscriber ID Effective Phone Address Plan / Dates Group PPO/POS BCBS OF [place] BCBS OF [id number] 2016-P [phone] [address] [place] - resent [id number] OUT OF [place] [id number] documented as of this encounter
--- OUTSIDE RECORDS SUMMARY | 2019-07-19 09:20 | XMS REPORT | Summary of Care ---
Author Author [facility] - Health Organization [facility] - Health Address Unknown Phone Unavailable Care Team Providers Care Branch Store Manager Name Role Phone YusufSaimaJessy LEATHER FINISHER PCP Reason for Visit * Reason Comments Atrial Fibrillation 3 month f/u Hypertension Encounter Details Care Team Description Date Type Department Jessy Goldberg FNP [address] [place] [address] Atrial fibrillation, controlled (Primary Dx) 07/15/[address] [facility] [address] [facility] 3 [place] [address] Allergies No Known Allergiesdocumented as of this encounter (statuses as of 07/15/2019) Medications End Date Status Medication Sig Dispensed Refills Start Date Active apixaban (ELIQUIS) 5 mg Take 1 tablet 180 tablet 1 tabletIndications: Atrial by mouth 2 9 fibrillation, controlled (two) times daily. Active metoprolol tartrate 25 mg Take 25 mg by 0 tablet mouth daily. 07/15/2019 Discontinued peg-electrolyte soln Take as 4000 mL 0 236-22.74-6.74 -5.86 gram directed 9 solution before colonoscopy documented as of this encounter (statuses as of 07/15/2019) Active Problems Problem Noted Date Atrial fibrillation with RVR 06/12/2019 Blood in stool 05/19/2019 Overview: Added automatically from request for surgery [id number] HTN (hypertension), benign 02/10/2019 documented as of this encounter (statuses as of 07/15/2019) Immunizations Name Administration Dates Next Due TDAP [...] Signs Reading Time Taken Comments Vital Sign 102/62 07/15/2019 10:51 AM CDT Blood Pressure 58 07/15/2019 10:51 AM CDT Pulse - - Temperature 16 07/15/2019 10:51 AM CDT Respiratory Rate 96% 07/15/2019 10:51 AM CDT Oxygen Saturation - - Inhaled Oxygen Concentration 71.1 kg (156 lb 12.8 oz) 07/15/2019 10:51 AM CDT Weight 170.2 cm (5' 7") 07/15/2019 10:51 AM CDT Height 24.56 07/15/2019 10:51 AM CDT Body Mass Index documented in this encounter Patient Instructions * Patient Instructions* Jessy Goldberg FNP - 07/15/2019 10:40 AM CDT Discharge Instructions for Atrial Fibrillation [...] about whether you should eliminate caffeine. Avoid xaln-uvw-vekurxv medicines that have caffeine in them. Let [...] unusually fast hear tbeat Date Last Reviewed: 03/01/201619999929-7398 [employer]. [address] [place] [address] 7. All rights reserved. This information is not intended as a substitute for pro fessional medical care. Always follow your healthcare professional's instruction s. documented in this encounter Progress Notes * Jessy Goldberg FNP - 07/15/2019 10:40 AM CDT Cc: Chief Complaint Patient presents with Atrial Fibrillation 3 month f/u Hypertension Moisés Delgado is a 54 year old male. Patient here for the following condition: Follow up A Fib Location: chest Duration: 1 month Severity: no pain Context: Doing well on medications. He is taking blood thinners and metoprolol w ith no side effects or complaints. He is only taking metoprolol once a day. He h as not had any alcohol since hospitalization. Denies easy bruising, bleeding, bl ack or bloody stool Quality: stable Modifying factors: medications Associated symptoms: none Timing: am=pm Patient was brought by self. Patient is speaking complete sentences and normal t one. Denies chest pain, shortness of breath, dizziness, weakness or palpitations . Allergies Moisés has No Known Allergies. Medications Outpatient Medications Prior to Visit Medication Sig Dispense Refill metoprolol tartrate 25 mg tablet Take 25 mg by mouth daily. apixaban (ELIQUIS) 5 mg tablet Take 1 tablet by mouth 2 (two) times daily. 1 80 tablet 1 peg-electrolyte soln 236-22.74-6.74 -5.86 gram solution Take as directed bef ore colonoscopy 4000 mL 0 No facility-administered medications prior to visit. Histories Past Medical History: Diagnosis Date Atrial fibrillation, controlled Hypertension Past Surgical History: Procedure Laterality Date [...] file Gets together: Not on file Attends hinduism service: Not on file Active member of [...] Negative for goiter, polydipsia, polyphagia and polyuria. Vital Signs BP 102/62 (BP Location: Left arm, Patient Position: Sitting, BP CUFF SIZE: Adult Medium) | Pulse 58 | Resp 16 | Ht 5' 7" (1.702 m) | Wt 156 lb 12.8 oz (71.1 kg) | SpO2 96% | BMI 24.56 kg/m Physical Exam Constitutional: He is oriented to [...] content normal. Nursing note and vitals reviewed. Assessment/Plan Atrial fibrillation, controlled (primary encounter diagnosis) Comment: c/w medications Plan: Follow up with Cardiology ER for any concerns Plan of care, desired health behaviors, goals [...] plan. AVS printed and given to patient/family/guardian Jessy Goldberg RN, BSN, LEATHER FINISHER [facility] Primary [facility] Specialty Care [facility] Office: [phone] documented in this encounter Plan of Treatment Care Team Description Date Type Specialty Rodolfo Porras MD [address] [facility] [id number] [place] [address] 08/16/2019 Office Visit Cardiology Dimitri Keane MD [address] [place] [address] 09/14/2019 Office Visit Cardiology Jessy Goldberg FNP [address] [place] [address] 10/13/2019 Office Visit Family Medicine Health Maintenance Due Date Last Done Comments HEPATITIS C (HCV) SCREEN 1965 PNEUMOCOCCAL 0-64 YEARS 1970 COMBINED SERIES (1 of 1 - PPSV23) Zoster Recombinant 2014 Vaccine (SHINGRIX) (1 of 2) LUNG CANCER SCREEN: 2019 Recommended for age 55-80 with 30 + pack year history INFLUENZA VACCINE (#1) 2019 COLONOSCOPY 02/12/2025 02/12/2015 DTaP,Tdap,and Td Vaccines 04/29/2029 04/29/2019 (2 - Td) documented as of this encounter Results Not on filedocumented in this encounter Visit Diagnoses Diagnosis Atrial fibrillation, controlled - Primary Atrial fibrillation documented in this encounter Insurance Type Payer Benefit Subscriber ID Effective Phone Address Plan / Dates Group PPO/POS BCBS OF [place] BCBS OF [id number] 2016-P [phone] [address] [place] - [facility] [id number] OUT OF [facility] [id number] (Home) [place] [address] documented as of this encounter
--- OUTSIDE RECORDS SUMMARY | 2019-07-19 09:20 | XMS REPORT | Summary of Care ---
Author Author [facility] - Health Organization [facility] - Health Address Unknown Phone Unavailable Care Team Providers Care Manual Lathe Operator Name Role Phone Jessy Goldberg RADIO ENGINEER PCP Reason for Visit * Reason Comments Authorization Encounter Details Care Team Description Date Type Department Russel Landry [address] [place] [address] Authorization 06/24/2019 Telephone [facility] [address] [address] Allergies No Known Allergiesdocumented as of this encounter (statuses as of 06/24/2019) Medications End Date Status Medication Sig Dispensed [...] controlled (two) times daily for 30 days. documented as of this encounter (statuses as of 06/24/2019) Active Problems Problem Noted Date Atrial fibrillation with RVR 06/12/2019 Blood in stool 05/19/2019 Overview: Added automatically from request for surgery [id number] HTN (hypertension), benign 02/10/2019 documented as of this encounter (statuses as of 06/24/2019) Immunizations Name Administration Dates Next Due TDAP [...] Description Date Type Specialty Diana Ortiz MD [address] [place] [address]. [place] [address] 07/12/2019 Office Visit Gastroenterology Jessy Goldberg, RADIO ENGINEER [address] [place] [address] 07/15/2019 Office Visit Family Medicine Rodolfo Porras MD [address] [facility] [id number] [place] [address] 08/16/2019 Office Visit Cardiology Dimitri Keane MD [address] [place] [address] 09/14/2019 Office Visit Cardiology Health Maintenance Due Date Last Done Comments HEPATITIS C (HCV) SCREEN 1965 PNEUMOCOCCAL 0-64 YEARS 1970 COMBINED SERIES (1 of 1 - PPSV23) Zoster Recombinant 2014 Vaccine (SHINGRIX) (1 of 2) INFLUENZA VACCINE (#1) 2019 COLONOSCOPY 02/12/2025 02/12/2015 DTaP,Tdap,and Td Vaccines 04/29/2029 04/29/2019 (2 - Td) documented as of this encounter Results Not on filedocumented in this encounter Insurance Type Payer Benefit Subscriber ID Effective Phone Address Plan / Dates Group PPO/POS BCBS OF [place] BCBS OF [id number] 2016-P [phone] [address] [place] - resent [id number] OUT OF [facility] [id number] documented as of this encounter
--- OUTSIDE RECORDS SUMMARY | 2019-07-19 09:20 | XMS REPORT | Summary of Care ---
Author Author [facility] - Health Organization [facility] - Health Address Unknown Phone Unavailable Care Team Providers Care Moccasin Sewer Name Role Phone Jessy Goldberg PSYCH COORDINATOR PCP Reason for Visit * Reason Comments Authorization Encounter Details Care Team Description Date Type Department Russel [address] [address] [place] [address] Authorization 06/24/2019 Telephone [facility] [address] [address] Allergies No Known Allergiesdocumented as [...] Overview: Added automatically from request for surgery [id number] HTN (hypertension), benign 02/10/2019 documented as of [...] Description Date Type Specialty Diana Ortiz MD [address] [place] [address]. [place] [address] 07/12/2019 Office Visit Gastroenterology Jessy Goldberg, PSYCH COORDINATOR [address] [place] [address] 07/15/2019 Office Visit Family Medicine Rodolfo Porras MD [address] [facility] [id number] [place] [address] 08/16/2019 Office Visit Cardiology Dimitri Keane MD [address] [place] [address] 09/14/2019 Office Visit Cardiology Health Maintenance [...] Plan / Dates Group PPO/POS BCBS OF [place] BCBS OF [id number] 2016-P [phone] [address] [place] - resent [id number] OUT OF [facility] [id number] documented as of this encounter
--- OUTSIDE RECORDS SUMMARY | 2019-07-19 09:20 | XMS REPORT | Summary of Care ---
Author Author [facility] - Health Organization [facility] - Health Address Unknown Phone Unavailable Care Team Providers Care Men'S Swim Coach Name Role Phone Marla Houston PCP Reason for Referral * (KEERTHI) Referred By Contact Referred To Contact Status Reason Specialty Diagnoses / Procedures Marla Houston FNP [address] [place] [address] New Request Cardiology Diagnoses Atrial fibrillation, controlled P rocedures CONSULT/REFERRAL CARDIOLOGY * (Routine) Referred By Contact Referred To Contact Status Reason Specialty Diagnoses / Procedures Marla Houston FNP [address] [place] [address] New Request Cardiology Diagnoses Atrial fibrillation, controlled P rocedures CONSULT CARDIAC EP/HEART RHYTHM CENTER Reason for Visit * Reason Comments Hospital F/U * (Routine) Referred By Contact Referred To Contact Status Reason Specialty Diagnoses / [place] [address] [address] Marla Houston FNP [address] [place] [address] New Request Family Medicine Diagnoses Atrial fibrillation with RVR P rocedures Discharge Follow-up: PCP MARLA HOUSTON; 1 Week Encounter Details Care Team Description Date Type Department Marla Houston FNP [address] [place] [address] Atrial fibrillation, controlled (Primary Dx) 06/20/2019 Office Visit [facility] [facility] 2660 [facility] 3 [place] [address] Allergies No Known Allergiesdocumented as [...] Overview: Added automatically from request for surgery [id number] HTN (hypertension), benign 02/10/2019 documented as of [...] about whether you should eliminate caffeine. Avoid cffy-bnq-kgzmlbg medicines that have caffeine in them. Let [...] unusually fast hear tbeat Date Last Reviewed: 03/01/201619995682-6448 [employer]. [address] [place] [address], [place], [place] [address] 7. All rights reserved. This information is [...] get worse New symptoms Date Last Reviewed: 03/09/201619994364-1366 [employer]. [address] [place] [address] 7. All rights reserved. This information is not intended as a substitute for pro fessional medical care. Always follow your healthcare professional's instruction s. documented in this encounter Progress Notes * Marla Houston FNP - 06/20/2019 9:40 AM CDT Transitional Care Management: Stun-ex-Othu Visit 06/20/2019 Moisés Delgado is a 53 year old male that was admitted on 06/11/19 to [facility] ([facility] CLC 7A. He was discharged on [...] file Gets together: Not on file Attends christianity service: Not on file Active member of [...] given to patient/family/guardian Marla Houston RN, BSN, MODEL PHOTOGRAPHERS' [facility] [address] [place] [address] Office: [phone] documented in this encounter Plan of Treatment Care Team Description Date Type Specialty Diana Ortiz MD [address] [place] [address] 07/12/2019 Office Visit Gastroenterology Yusuf Marla, [employer]' [address] [place] [address] 07/15/2019 Office Visit Family Medicine Rodolfo Porras MD [address] [place], [place] [address] 08/16/2019 Office Visit Cardiology Health Maintenance Due [...] / Dates Group PPO/POS BCBS OF [place] BCBS OF [id number] 2016-P [phone] P [facility] [id number] OUT OF [facility] [address] (Home) [place] [address] documented as of this encounter
--- OUTSIDE RECORDS SUMMARY | 2019-07-19 09:20 | XMS REPORT | Summary of Care ---
Author Author [facility] - Health Organization [facility] - Health Address Unknown Phone Unavailable Care Team Providers Care Custodial Officer Name Role Phone Jessy Goldberg WASH HOUSE WORKER PCP Reason for Visit * Reason Comments Forms Encounter Details Care Team Description Date Type Department Jessy Goldberg FNP [address] [place] [address] Forms 07/14/2019 Telephone [facility] 2660 [facility] 3 [place] [address] Allergies No Known Allergiesdocumented as of this encounter (statuses as of 07/14/2019) Medications End Date Status Medication Sig Dispensed Refills Start Date Active peg-electrolyte soln Take as 4000 mL 0 236-22.74-6.74 -5.86 gram directed 9 solution before colonoscopy Active apixaban (ELIQUIS) 5 mg Take 1 tablet 180 tablet 1 tabletIndications: Atrial by mouth 2 9 fibrillation, controlled (two) times daily. documented as of this encounter (statuses as of 07/14/2019) Active Problems Problem Noted Date Atrial fibrillation with RVR 06/12/2019 Blood in stool 05/19/2019 Overview: Added automatically from request for surgery [id number] HTN (hypertension), benign 02/10/2019 documented as of this encounter (statuses as of 07/14/2019) Immunizations Name Administration Dates Next Due TDAP [...] Treatment Care Team Description Date Type Specialty Jessy Goldberg, WASH HOUSE WORKER [address] [place] [address] 07/15/2019 Office Visit Family Medicine Rodolfo Porras MD 301 [facility] MM[address] [place] [address] 08/16/2019 Office Visit Cardiology Dimitri Keane MD [address] [place] [address] 09/14/2019 Office Visit Cardiology Health Maintenance [...] Plan / Dates Group PPO/POS BCBS OF [place] BCBS OF [id number] 2016-P [phone] [address] [place] - [facility] [id number] OUT OF [facility] [id number] documented as of this encounter
--- OUTSIDE RECORDS SUMMARY | 2019-07-19 09:20 | XMS REPORT | Summary of Care ---
Author Author [facility] - Health Organization [facility] - Health Address Unknown Phone Unavailable Care Team Providers Care Piano Technician Name Role Phone Jessy Goldberg HAO PCP Reason for Visit * Reason Comments Forms Encounter Details Care Team Description Date Type Department Jessy Goldberg FNP [address] [address] Forms 2019 Telephone [facility] 2660 [facility] 3 [place] [address] Allergies No Known Allergiesdocumented as of this encounter (statuses as of 06/30/2019) Medications End Date Status Medication Sig Dispensed Refills Start Date Active peg-electrolyte soln Take as 4000 mL 0 236-22.74-6.74 -5.86 gram directed 9 solution before colonoscopy 07/13/2019 Active metoprolol tartrate 25 mg Take 1 tablet 90 tablet 0 tabletIndications: Atrial by mouth 3 9 fibrillation with RVR (three) times daily for 30 days. Active apixaban (ELIQUIS) 5 mg Take 1 tablet 180 tablet 1 tabletIndications: Atrial by mouth 2 9 fibrillation, controlled (two) times daily. documented as of this encounter (statuses as of 06/30/2019) Active Problems Problem Noted Date Atrial fibrillation with RVR 06/12/2019 Blood in stool 05/19/2019 Overview: Added automatically from request for surgery [id number] HTN (hypertension), benign 02/10/2019 documented as of this encounter (statuses as of 06/30/2019) Immunizations Name Administration Dates Next Due TDAP [...] Description Date Type Specialty Diana Ortiz MD [address] [place] [address]. [place] [address] 07/12/2019 Office Visit Gastroenterology Jessy Goldberg, [facility] [address] [place] [address] 07/15/2019 Office Visit Family Medicine Rodolfo Porras MD 301 [facility] GU[address] [place] [address] 08/16/2019 Office Visit Cardiology Dimitri Keane MD [address] [place] [address] 09/14/2019 Office Visit Cardiology Health Maintenance [...] Plan / Dates Group PPO/POS BCBS OF [place] BCBS OF [id number] 2016-P [phone] [address] [place] - resent [id number] OUT OF [facility] [id number] documented as of this encounter
--- OUTSIDE RECORDS SUMMARY | 2019-07-19 09:20 | XMS REPORT | Summary of Care ---
Author Author [facility] - Health Organization [facility] - Health Address Unknown Phone Unavailable Care Team Providers Care Personal Lines Underwriter Name Role Phone Jessy Goldberg DEPUTY PROGRAM MANAGER PCP Reason for Visit * Reason Comments Refill Request Encounter Details Care Team Description Date Type Department Russel Landry [address] [place] [address] Refill Request 06/27/2019 Refill [facility] [address] [address] Allergies No Known Allergiesdocumented as of this encounter (statuses as of 06/27/2019) Medications End Date Status Medication Sig Dispensed [...] 2 9 fibrillation, controlled (two) times daily. 06/27/2019 Discontinued apixaban (ELIQUIS) 5 mg Take 1 tablet 60 tablet 0 tabletIndications: Atrial by mouth 2 9 fibrillation, controlled (two) times daily for 30 days. documented as of this encounter (statuses as of 06/27/2019) Active Problems Problem Noted Date Atrial fibrillation with RVR 06/12/2019 Blood in stool 05/19/2019 Overview: Added automatically from request for surgery [id number] HTN (hypertension), benign 02/10/2019 documented as of this encounter (statuses as of 06/27/2019) Immunizations Name Administration Dates Next Due TDAP [...] Description Date Type Specialty Diana Ortiz MD [address] [place] [address]. [place] [address] 07/12/2019 Office Visit Gastroenterology Jessy Goldberg, DEPUTY PROGRAM MANAGER [address] [place] [address] 07/15/2019 Office Visit Family Medicine Rodolfo Porras MD [address] [place] [address] QL6388 [place] [address] 08/16/2019 Office Visit Cardiology Dimitri Keane MD [address] [place] [address] 09/14/2019 Office Visit Cardiology Health Maintenance [...] encounter Visit Diagnoses Diagnosis Atrial fibrillation, controlled Atrial fibrillation documented in this encounter Insurance Type Payer Benefit Subscriber ID Effective Phone Address Plan / Dates Group PPO/POS BCBS OF [place] BCBS OF [id number] 2016-P [phone] P O [facility] - [facility] [id number] OUT OF [facility] [id number] documented as of this encounter
--- OUTSIDE RECORDS SUMMARY | 2019-07-19 09:20 | XMS REPORT | Summary of Care ---
Author Author [facility] - Health Organization [facility] - Health Address Unknown Phone Unavailable Care Team Providers Care Aluminum Pool Installer Name Role Phone YusufSaimaJessy RAIL OPERATOR PCP Reason for Visit * Reason Comments Atrial Fibrillation 3 month f/u Hypertension Encounter Details Care Team Description Date Type Department Jessy Goldberg FNP [address] [place] [address] Atrial fibrillation, controlled (Primary Dx) 07/15/2019 Office Visit [facility] [facility] 2660 [facility] 3 [place] [address] Allergies No Known Allergiesdocumented as [...] Overview: Added automatically from request for surgery [id number] HTN (hypertension), benign 02/10/2019 documented as of [...] about whether you should eliminate caffeine. Avoid khyz-nii-ntsysaw medicines that have caffeine in them. Let [...] unusually fast hear tbeat Date Last Reviewed: 03/01/201619997550-4888 [employer]. [address] [place] [address] 7. All rights reserved. This information is [...] file Gets together: Not on file Attends islam service: Not on file Active member of [...] given to patient/family/guardian Jessy Goldberg RN, BSN, RAIL OPERATOR [facility] Primary and Specialty Care Clinic [facility] Office: [phone] documented in this encounter Plan of Treatment Care Team Description Date Type Specialty Rodolfo Porras MD [address] [facility] [address] [place] [address] 08/16/2019 Office Visit Cardiology Dimitri Keane MD [address] [place] [address] 09/14/2019 Office Visit Cardiology Jessy Goldberg FNP [address] [place] [address] 10/13/2019 Office Visit Family Medicine [...] Plan / Dates Group PPO/POS BCBS OF [place] BCBS OF [id number] 2016-P [phone] [address] [place] - [facility] [id number] OUT OF [facility] [address] (Home) [place] [address] documented as of this encounter
--- OUTSIDE RECORDS SUMMARY | 2019-07-19 09:20 | XMS REPORT | Summary of Care ---
Author Author [facility] - Health Organization [facility] - Health Address Unknown Phone Unavailable Care Team Providers Care Technician Chemical Cleaning Name Role Phone Jessy Goldberg SCRAP PICKER PCP Reason for Visit * Reason Comments Forms Fmla Encounter Details Care Team Description Date Type Department Jessy Goldberg FNP [address] [place] [address] Forms ([facility]) 07/04/2019 Telephone [facility] [address] [address] Allergies No Known Allergiesdocumented as of this encounter (statuses as of 07/05/2019) Medications End Date Status Medication Sig Dispensed [...] as of this encounter (statuses as of 07/05/2019) Active Problems Problem Noted Date Atrial fibrillation with RVR 06/12/2019 Blood in stool 05/19/2019 Overview: Added automatically from request for surgery [id number] HTN (hypertension), benign 02/10/2019 documented as of this encounter (statuses as of 07/05/2019) Immunizations Name Administration Dates Next Due TDAP [...] Team Description Date Type Specialty Jessy Goldberg, SCRAP PICKER [address] [place] [phone] 07/15/2019 Office Visit Family Medicine Rodolfo Porras MD [address] [facility] [address] [place] [address] 08/16/2019 Office Visit Cardiology Dimitri Keane MD 301 [place] [address] 09/14/2019 Office Visit Cardiology Health [...] Plan / Dates Group PPO/POS BCBS OF [place] BCBS OF [id number] 2016-P [phone] [address] [place] - [facility] [id number] OUT OF [place] [id number] documented as of this encounter
--- OUTSIDE RECORDS SUMMARY | 2019-07-19 09:20 | XMS REPORT | Summary of Care ---
Author Author [facility] - Health Organization [facility] - Health Address Unknown Phone Unavailable Care Team Providers Care Residential Concierge Name Role Phone Yusuf Jessy FNP PCP Reason for Visit * Reason Comments Refill Request Encounter Details Care Team Description Date Type Department Jessy Goldberg FNP [address] [place] [address] Refill Request 06/30/2019 Refill [facility] [address] [address] Allergies No Known Allergiesdocumented as of this encounter (statuses as of 07/01/2019) Medications End Date Status Medication Sig Dispensed [...] 2 9 fibrillation, controlled (two) times daily. 07/01/2019 Discontinued apixaban (ELIQUIS) 5 mg Take 1 tablet 180 tablet 1 tabletIndications: Atrial by mouth 2 9 fibrillation, controlled (two) times daily. documented as of this encounter (statuses as of 07/01/2019) Active Problems Problem Noted Date Atrial fibrillation with RVR 06/12/2019 Blood in stool 05/19/2019 Overview: Added automatically from request for surgery [id number] HTN (hypertension), benign 02/10/2019 documented as of this encounter (statuses as of 07/01/2019) Immunizations Name Administration Dates Next Due TDAP [...] Description Date Type Specialty Diana Ortiz MD [address] [place] [address]. [place] [phone] 07/12/2019 Office Visit Gastroenterology Jessy Goldberg, DIRECTOR IMAGING [address] [place] [address] 07/15/2019 Office Visit Family Medicine Rodolfo Porras MD [address] [place] [address] EB2874 [place] [address] 08/16/2019 Office Visit Cardiology Dimitri Keane MD [address] [place] [address] 09/14/2019 Office Visit Cardiology Health Maintenance [...] Plan / Dates Group PPO/POS BCBS OF [place] BCBS OF [id number] 2016-P [phone] [address] [facility] [id number] OUT OF [facility] [id number] documented as of this encounter
--- OUTSIDE RECORDS SUMMARY | 2019-07-19 09:20 | XMS REPORT | Summary of Care ---
Author Author [facility] - Health Organization [facility] - Health Address Unknown Phone Unavailable Care Team Providers Care Artificial Plastic Eye Maker Name Role Phone Jessy Goldberg THERAPEUTIC RECREATION DIRECTOR PCP Reason for Visit * Reason Comments Appointment Talk To Nurse Encounter Details Care Team Description Date Type Department Dimitri Keane MD 301 [place] [address] Appointment; Talk To Nurse 06/21/2019 Telephone [facility] [address] [address] Allergies No Known Allergiesdocumented as of this encounter (statuses as of 06/21/2019) Medications End Date Status Medication Sig Dispensed [...] as of this encounter (statuses as of 06/21/2019) Active Problems Problem Noted Date Atrial fibrillation with RVR 06/12/2019 Blood in stool 05/19/2019 Overview: Added automatically from request for surgery [id number] HTN (hypertension), benign 02/10/2019 documented as of this encounter (statuses as of 06/21/2019) Immunizations Name Administration Dates Next Due TDAP [...] Description Date Type Specialty Diana Ortiz MD 301 [facility] [place] [address] 07/12/2019 Office Visit Gastroenterology Jessy Goldberg, THERAPEUTIC RECREATION DIRECTOR [address] [place] [address] 07/15/2019 Office Visit Family Medicine Rodolfo Porras MD 301 [facility] ZQ[address]250 [place], [place] [address] 08/16/2019 Office Visit Cardiology Health Maintenance Due [...] Plan / Dates Group PPO/POS BCBS OF [place] BCBS OF [id number] 2016-P [phone] [address] [place] - resent [id number] OUT OF [place] [id number] documented as of this encounter
[2019-07-19] MEDS ORDERED: SODIUM CHLORIDE 0.9% 1000ML 1,000 ML ONE (09:34)
[2019-07-19] MEDS ORDERED: SODIUM CHLORIDE 0.9% 1000ML 1,000 ML IV SCH (09:45)
--- NOTE | 2019-07-19 10:01 | Diagnostic Imaging Report ---
Chest, 1 view, 07/19/2019. History: Dizziness, tachycardia. Comparison: None available. Findings: The cardiomediastinal silhouette and pulmonary vasculature are within normal limits for a portable exam. There is no focal consolidation or pleural effusion. There are no acute osseous or soft tissue abnormalities. Impression: No acute cardiopulmonary abnormality. Signed by: Markel Henry on 07/19/2019 9:57 AM
[2019-07-19] MEDS ORDERED: CEFTRIAXONE SOD 1 GM/NS 50 ML 50 ML IV ONE ×2 (10:45→10:51)
--- NOTE | 2019-07-19 10:53 | Diagnostic Imaging Report ---
EXAMINATION: Head CT HISTORY: Dizziness COMPARISON: Head CT 04/28/2019 TECHNIQUE: Multidetector axial images were obtained without contrast from the foramen magnum to the vertex . The images were reconstructed using brain and bone algorithms. Thin section brain images were reformatted into coronal and sagittal planes. Image quality: Motion/streaking artifact limits the evaluation of the skull base and posterior cranial fossa. Dose modulation, iterative reconstruction, and/or weight based adjustment of the mA/kV was utilized to reduce the radiation dose to as low as reasonably achievable. FINDINGS: Parenchyma: 1. No abnormal densities. Minimal likely physiologic calcification of the globi pallidi. 2. No mass or hemorrhage. No CT evidence of acute territorial vascular insult. Extra-axial spaces:No abnormal density. No extra-axial fluid collections Brain volume: Normal for age. Ventricles: No hydrocephalus or displacement. Arteries: No density suggestive of thrombus. Dural sinuses: No abnormal density. Extra-axial spaces: No abnormal density. Foramen magnum: No mass, Chiari malformation, or basilar invagination. Sella: No obvious mass. Paranasal/mastoid sinuses: Imaged portions unremarkable. Skull/Scalp: No lytic or blastic lesions. No fractures. IMPRESSION: No intracranial abnormalities, unchanged compared to head CT from 04/28/2019. Signed by: Dr. Adore Ibarra M.D. on 07/19/2019 10:50 AM
--- NOTE | 2019-07-19 11:00 | NUR ---
PT RESTING, VITAL SIGNS STABLE, PT STATED HE FEELS MUCH BETTER AFTER FLUIDS.
--- NOTE | 2019-07-19 12:00 | NUR ---
PT TO BE TRANSFERRED, PT AWARE OF POC, PT VITAL SIGNS STABLE, PT VOICES NO COMPLAINTS AT THIS TIME
--- NOTE | 2019-07-19 13:30 | NUR ---
PT RESTING, VITAL SIGNS STABLE, OFFERED PT SOMETHING TO EAT, PT STATED HE IS NOT HUNGRY AT THIS TIME,
--- NOTE | 2019-07-19 14:12 | NUR ---
[facility] CALLED TO INTIATE TRANSFER AT 1257, [facility] CALLED BACK AND STATED ALL 3 CAMPUSES ARE AT CAPACITY AND HOLDING.
--- NOTE | 2019-07-19 14:42 | NUR ---
INTIATED TRANSFER TO [facility] WAS TOLD COULD NOT INTIATE TRANSFER DUE TO DIVERSION OF ALL CAMPUSES
--- NOTE | 2019-07-19 15:11 | NUR ---
INITIATED TRANSFER TO [facility]
--- NOTE | 2019-07-19 15:43 | NUR ---
[facility] CALLED FOR TRANSPORT 35MIN ETA
--- NOTE | 2019-07-19 15:47 | NUR ---
[facility] CALLED WITH JORDIN FOR BED, PT PERFERS [facility], PT TO BE TRANSFERED TO [facility].
[2019-07-19 16:20] VITALS: BP 129/82
== END 2019-07-19 16:22 | disposition other institution (70) ==
LOC: FSED 09:16
DX: R00.2 Palpitations (principal); R55 Syncope and collapse; I48.0 Paroxysmal atrial fibrillation; I10 Essential (primary) hypertension
CPT/HCPCS: 70450; 71045; 80053; 80307; 81003; 82553; 83880; 84484; 85025; 85379; 93005; 99284; J0696; J7030

== ENCOUNTER 2019-08-02 15:29 | Emergency (ER) | payer BC ==
[~2019-08-02] VITALS: Ht 167.6 cm; Wt 71.7 kg
[2019-08-02] MEDS: SODIUM CHLORIDE 0.9% 1000ML 1,000 ML IV SCH (16:00)
[2019-08-02] MEDS ORDERED: SODIUM CHLORIDE 0.9% 50ML 50 ML ONE (16:13)
--- OUTSIDE RECORDS SUMMARY | 2019-08-02 16:14 | XMS REPORT | Summary of Care ---
Author Author [facility] - Health Organization [facility] - Health Address Unknown Phone Unavailable Care Team Providers Care Mining Teacher Name Role Phone Jessy Goldberg RN NAVIGATOR PCP Reason for Visit * Reason Comments Transition Of Care Encounter Details Care Team Description Date Type Department Melissa Jovel, RN [address] [place] [address] Transition Of Care 07/21/2019 Transition of [facility] Allergies No Known Allergiesdocumented as of this encounter (statuses as of 07/21/2019) Medications End Date Status Medication Sig Dispensed Refills Start Date Active apixaban (ELIQUIS) 5 mg Take 1 tablet 180 tablet 1 tabletIndications: Atrial by mouth 2 9 fibrillation, controlled (two) times daily. Active metoprolol tartrate 25 mg Take 25 mg by 0 tablet mouth daily. documented as of this encounter (statuses as of 07/21/2019) Active Problems Problem Noted Date Syncope 07/19/2019 Atrial fibrillation with RVR 06/12/2019 Blood in stool 05/19/2019 Overview: Added automatically from request for surgery [id number] HTN (hypertension), benign 02/10/2019 documented as of this encounter (statuses as of 07/21/2019) Immunizations Name Administration Dates Next Due TDAP [...] Date Type Specialty Rodolfo Porras MD [id number] [place] [address] 08/16/2019 Office Visit Cardiology Dimitri Keane MD [address] [place] [address] 09/14/2019 Office Visit Cardiology Jessy Goldberg, RN NAVIGATOR [address] [place] [address] 10/13/2019 Office Visit Family Medicine [...] Plan / Dates Group PPO/POS BCBS OF [place] BCBS OF [id number] 2016-P [phone] [address] [facility] [id number] OUT OF [facility] [id number] documented as of this encounter
--- OUTSIDE RECORDS SUMMARY | 2019-08-02 16:14 | XMS REPORT | Summary of Care ---
Author Author [facility] - Health Organization [facility] - Health Address Unknown Phone Unavailable Care Team Providers Care Electronic Funds Transfer Coordinator Name Role Phone Jessy Goldberg ADULT CARE PROVIDER PCP Reason for Referral * (Routine) Referred By Contact Referred To Contact Status Reason Specialty Diagnoses / Procedures Lucrecia Singer MD [address] [place] [address] New Request IM-INTERVENTIONA Diagnoses L CARDIOLOGY Syncope, unspecified syncope type P rocedures Discharge Follow-Up: Specialty Service IM-INTERVENTIONAL CARDIOLOGY; 2 Weeks * (Routine) Referred By Contact Referred To Contact Status Reason Specialty Diagnoses / Procedures Dimitri Keane MD [address] [place] [address] New Request IM-CLINICAL Diagnoses CARDIAC Syncope, ELECTROPHYSIOLOG unspecified Y syncope type P rocedures Discharge Follow-Up: Specialty Service IM-CLINICAL CARDIAC ELECTROPHYSIOLOGY; 1 Week * MRI/CAT Scan (STAT) Referred By Contact Referred To Contact Status Reason Specialty Diagnoses / Procedures Clint Kumar MD [address] [place] [address] New Request Diagnostic Diagnoses Radiology Syncope, unspecified syncope type P rocedures CT HEAD WO CONTRAST * MRI/CAT Scan (STAT) Referred By Contact Referred To Contact Status Reason Specialty Diagnoses / Procedures Clint Kumar MD [address] [place] [address] New Request Diagnostic Diagnoses Radiology Syncope, unspecified syncope type P rocedures CT HEAD WO CONTRAST * Radiology Services (STAT) Referred By Contact Referred To Contact Status Reason Specialty Diagnoses / Procedures Clint Kumar MD [address] [place] [address] New Request Diagnostic Diagnoses Radiology Syncope, unspecified syncope type P rocedures XR CHEST 1 VW * Radiology Services (STAT) Referred By Contact Referred To Contact Status Reason Specialty Diagnoses / Procedures Clint Kumar MD [address] [address] New Request Diagnostic Diagnoses Radiology Syncope, unspecified syncope type P rocedures XR CHEST 1 VW Reason for Visit * Auth/Cert Referred By Contact Referred To Contact Status Reason Specialty Diagnoses / Procedures Clc [address] [place] [phone] Medicine - Diagnoses Inpatient only near syncope, palpitations, afib Encounter Details Care Team Description Date Type Department Uvaldo Green MD [address] [place] [id number] Syncope 07/19/2019 Hospital [facility] Health - Encounter Medicine/Surgery [facility] 7B 07/20/[address] [place] [phone] Allergies No Known Allergiesdocumented as of this encounter (statuses as of 07/20/2019) Medications End Date Status Medication Sig Dispensed Refills Start Date Active apixaban (ELIQUIS) 5 mg Take 1 tablet 180 tablet 1 tabletIndications: Atrial by mouth 2 9 fibrillation, controlled (two) times daily. Active metoprolol tartrate 25 mg Take 25 mg by 0 tablet mouth daily. documented as of this encounter (statuses as of 07/20/2019) Active Problems Problem Noted Date Syncope 07/19/2019 Atrial fibrillation with RVR 06/12/2019 Blood in stool 05/19/2019 Overview: Added automatically from request for surgery [id number] HTN (hypertension), benign 02/10/2019 documented as of this encounter (statuses as of 07/20/2019) Immunizations Name Administration Dates Next Due TDAP [...] Signs Reading Time Taken Comments Vital Sign 123/84 07/20/2019 3:00 PM CDT Blood Pressure 60 07/20/2019 3:00 PM CDT Pulse 36.8 C (98.3 F) 07/20/2019 3:00 PM CDT Temperature 18 07/20/2019 3:00 PM CDT Respiratory Rate 99% 07/20/2019 3:00 PM CDT Oxygen Saturation - - Inhaled Oxygen Concentration - - Weight - - Height - - Body Mass Index documented in this encounter Discharge Instructions * Attachments The following attachments cannot be sent through Care Everywhere.* Atrial Fibrillation, Discharge Instructions for (Burmese) * Fibrillation, Atrial (Burmese) * Apixaban oral tablets (Burmese) documented in this encounter Progress Notes * Trent Rodney, ABIOLA - 07/20/2019 3:21 PM CDT XpertMD Progress Note Trent Rodney ACNP Subjective: Near syncope, symptomatic bradycardia Patient seen & examined. Events reviewed. Objective: Vitals: 07/20/19 0000 07/20/19 0430 07/20/19 0700 07/20/19 1100 BP: 106/65 110/82 106/71 113/77 Pulse: (!) 46 50 52 56 Resp: 20 17 16 18 Temp: 36.4 C (97.6 F) 37 C (98.6 F) 36.3 C (97.3 F) 36.5 C (97.7 F) TempSrc: Tympanic Tympanic Tympanic Tympanic SpO2: 95% 96% 97% 98% General: awake, alert, no distress HEENT: NC, AT, PERRLA, EOMI, MMM, anicteric sclera Neck: no JVD/lymphadenopathy CV: RRR, no murmurs, rubs, gallops - bradycardia Lungs: clear to auscultation bilaterally Abdomen: soft, NT, ND, (+)BS Skin: no rashes Extremities: no clubbing, cyanosis, edema Neuro: CN 2-12 intact, no focal deficits Psych: oriented x 3, normal affect Labs: Recent Results (from the past 48 hour(s)) BASIC METABOLIC PANEL (NA, K, CL, CO2, GLUCOSE, BUN, CREATININE, CA) Collection Time: 07/19/19 10:02 PM Result Value Ref Range NA 137 135 - 145 mmol/L K 3.7 3.5 - 5.0 mmol/L CL 102 98 - 108 mmol/L CO2 TOTAL 28 23 - 31 mmol/L AGAP 7 2 - 16 BUN 15 7 - 23 mg/dL GLUCOSE 93 70 - 110 mg/dL CREATININE 0.80 0.60 - 1.25 mg/dL CALCIUM 9.6 8.6 - 10.6 mg/dL eGFR Calculation (Non-) 100.4 mL/min/1.73m2 eGFR Calculation () 121.6 mL/min/1.73m2 TROPONIN I Collection Time: 07/19/19 10:02 PM Result Value Ref Range TROPONIN I 0.003 <=0.034 ng/mL CBC WITH DIFFERENTIAL Collection Time: 07/19/19 10:02 PM Result Value Ref Range WBC 5.75 4.20 - 10.70 10*3/L RBC 4.36 4.26 - 5.52 10*6/L HGB 13.8 12.2 - 16.4 g/dL HCT 40.5 38.4 - 49.3 % MCV 92.9 81.7 - 95.6 fL MCH 31.7 26.1 - 32.7 pg MCHC 34.1 31.2 - 35.0 g/dL RDW-SD 41.4 38.5 - 51.6 fL RDW-CV 12.0 (L) 12.1 - 15.4 % PLT 174 150 - 328 10*3/L MPV 10.7 9.8 - 13.0 fL NRBC/100 WBC 0.0 0.0 - 10.0 /100 WBCs NRBC x10^3 <0.01 10*3/L GRAN MAT (NEUT) % 56.8 % IMM GRAN % 0.20 % LYMPH % 26.8 % MONO % 14.1 % EOS % 1.6 % BASO % 0.5 % GRAN MAT x10^3(ANC) 3.27 1.99 - 6.95 10*3/uL IMM GRAN x10^3 <0.03 0.00 - 0.06 10*3/uL LYMPH x10^3 1.54 1.09 - 3.23 10*3/uL MONO x10^3 0.81 0.36 - 1.02 10*3/uL EOS x10^3 0.09 0.06 - 0.53 10*3/uL BASO x10^3 0.03 0.01 - 0.09 10*3/uL TROPONIN I Collection Time: 07/20/19 5:26 AM Result Value Ref Range TROPONIN I 0.004 <=0.034 ng/mL Basic Metabolic Panel (NA, K, CL, CO2, GLUCOSE, BUN, CREATININE, CA) Collection Time: 07/20/19 5:26 AM Result Value Ref Range NA 137 135 - 145 mmol/L K 3.9 3.5 - 5.0 mmol/L CL 103 98 - 108 mmol/L CO2 TOTAL 25 23 - 31 mmol/L AGAP 9 2 - 16 BUN 15 7 - 23 mg/dL GLUCOSE 107 70 - 110 mg/dL CREATININE 0.77 0.60 - 1.25 mg/dL CALCIUM 9.7 8.6 - 10.6 mg/dL eGFR Calculation (Non-) 104.9 mL/min/1.73m2 eGFR Calculation () 127.1 mL/min/1.73m2 CBC WITH DIFFERENTIAL Collection Time: 07/20/19 5:26 AM Result Value Ref Range WBC 4.64 4.20 - 10.70 10*3/L RBC 4.34 4.26 - 5.52 10*6/L HGB 13.9 12.2 - 16.4 g/dL HCT 40.2 38.4 - 49.3 % MCV 92.6 81.7 - 95.6 fL MCH 32.0 26.1 - 32.7 pg MCHC 34.6 31.2 - 35.0 g/dL RDW-SD 41.4 38.5 - 51.6 fL RDW-CV 12.1 12.1 - 15.4 % PLT 170 150 - 328 10*3/L MPV 10.7 9.8 - 13.0 fL NRBC/100 WBC 0.0 0.0 - 10.0 /100 WBCs NRBC x10^3 <0.01 10*3/L GRAN MAT (NEUT) % 50.0 % IMM GRAN % 0.20 % LYMPH % 34.3 % MONO % 12.7 % EOS % 2.2 % BASO % 0.6 % GRAN MAT x10^3(ANC) 2.32 1.99 - 6.95 10*3/uL IMM GRAN x10^3 <0.03 0.00 - 0.06 10*3/uL LYMPH x10^3 1.59 1.09 - 3.23 10*3/uL MONO x10^3 0.59 0.36 - 1.02 10*3/uL EOS x10^3 0.10 0.06 - 0.53 10*3/uL BASO x10^3 0.03 0.01 - 0.09 10*3/uL Current Facility-Administered Medications: apixaban (ELIQUIS) tablet 5 mg, 5 mg, Oral, BID, Clint Kumar MD, 5 m g at 07/20/19 0831 Assessment: Moisés Delgado is a 54 year old male admitted with: Presyncopal episode Symptomatic bradycardia Atrial fibrillation - status post ablation Hypertension Tobacco use Plan: Beta mary to remain on hold Status post ablation - Electrophysiology evaluation pending Appreciate cardiology evaluation CT head negative for acute abnormalities Chest x-ray unrevealing for acute cardiopulmonary abnormality Trend troponins - negative so far Strict fall precautions Telemetry monitoring - follow-up with worsening bradycardia Anticoagulation Echocardiogram EKGs Further interventions will be depend on patient's clinical course Plan discussed with patient Trent Rodney NP 07/20/2019 3:21 PM documented in this encounter Plan of Treatment Care Team Description Date Type Specialty Rodolfo Porras MD [address] [facility] [address], [place] [id number] 08/16/2019 Office Visit Cardiology Dimitri Keane MD [address] [place], [place] [phone] 09/14/2019 Office Visit Cardiology Jessy Goldberg, ADULT CARE PROVIDER [address] [place] [address] 10/13/2019 Office Visit Family Medicine Order Schedule Name Type Priority Associated Diagnoses EVERY 6 HOURS (START TIME ADJUSTABLE) START TIME ADJUSTABLE for 3 Occurrences starting 07/19/2019 until 07/20/2019, 2 completed TROPONIN I LAB Routine ONCE for 1 Occurrences starting 07/19/2019 until 07/19/2019 EKG-12 LEAD ROUTINE HEART STATION STAT Health Maintenance Due Date Last Done Comments [...] Comments Procedure Name Priority Date/Time Associated Diagnosis CBC WITH DIFFERENTIAL Routine 07/20/2019 5:26 AM CDT CBC WITH DIFF Routine 07/20/2019 5:26 AM CDT BASIC METABOLIC PANEL Routine 07/20/2019 (NA, K, CL, CO2, GLUCOSE, 5:26 AM CDT BUN, CREATININE, CA) TROPONIN I Routine 07/20/2019 5:[address] HEAD WO CONTRAST STAT 07/20/2019 Syncope, unspecified 12:43 AM CDT syncope type XR CHEST 1 VW STAT 07/20/2019 Syncope, unspecified 12:43 AM CDT syncope type EXTRA TUBE LT. GREEN Routine 07/19/2019 10:02 PM CDT CBC WITH DIFFERENTIAL Routine 07/19/2019 10:02 PM CDT CBC WITH DIFF Routine 07/19/2019 10:02 PM CDT BASIC METABOLIC PANEL Routine 07/19/2019 (NA, K, CL, CO2, GLUCOSE, 10:02 PM CDT BUN, CREATININE, CA) TROPONIN I Routine 07/19/2019 10:02 PM CDT documented in this encounter Results * CBC WITH DIFFERENTIAL (07/20/2019 5:26 AM CDT) WBC 4.64 4.20 - 10.70 [facility] 10*3/L [facility] RBC 4.34 4.26 - 5.52 10*6/L [facility] HGB 13.9 12.2 - 16.4 g/dL [facility] HCT 40.2 38.4 - 49.3 % [facility] MCV 92.6 81.7 - 95.6 fL [facility] MCH 32.0 26.1 - 32.7 pg [facility] MCHC 34.6 31.2 - 35.0 g/dL [facility] RDW-SD 41.4 38.5 - 51.6 fL [facility] RDW-CV 12.1 12.1 - 15.4 % [facility] PLT 170 150 - 328 10*3/L [facility] MPV 10.7 9.8 - 13.0 fL [facility] NRBC/100 WBC 0.0 0.0 - 10.0 /100 WBCs [facility] NRBC x10^3 <0.01 10*3/L [facility] GRAN MAT (NEUT) 50.0 % [facility] % [facility] IMM GRAN % 0.20 % [facility] LYMPH % 34.3 % [facility] MONO % 12.7 % [facility] EOS % 2.2 % [facility] BASO % 0.6 % [facility] GRAN MAT 2.32 1.99 - 6.95 10*3/uL [facility] x10^3(ANC) [facility] IMM GRAN x10^3 <0.03 0.00 - 0.06 10*3/uL [facility] LYMPH x10^3 1.59 1.09 - 3.23 10*3/uL [facility] MONO x10^3 0.59 0.36 - 1.02 10*3/uL [facility] EOS x10^3 0.10 0.06 - 0.53 10*3/uL [facility] BASO x10^3 0.03 0.01 - 0.09 10*3/uL [facility] Specimen Blood - ARM, LEFT Performing Organization Address [facility]/[employer] Phone Number [facility] CLIA: [id number], [address] [place], [place] [phone] [facility] * TROPONIN I (07/20/2019 5:26 AM CDT) TROPONIN I 0.004 <=0.034 ng/mL [facility] Specimen Blood - ARM, LEFT Narrative Performed At Equal or Less than 0.034 ng/ml---Normal [facility] Note: Cardiac troponin begins to rise 3-4 hours after the onset of ischemia. [facility] Repeat in 4-6 hours if the sample was drawn within 3-4 hours of the onset of the BAYARD symptom and found normal. Between 0.035 and [...] patient's use of biotin. Performing Organization Address [facility]/[employer] Phone Number [facility] CLIA: [id number], [address] [place], [place] [phone] [facility] * Basic Metabolic Panel (NA, K, CL, CO2, GLUCOSE, BUN, CREATININE, CA) (07/20/2019 5:26 AM CDT) NA 137 135 - 145 mmol/L [facility] K 3.9 3.5 - 5.0 mmol/L [facility] CL 103 98 - 108 mmol/L [facility] CO2 TOTAL 25 23 - 31 mmol/L [facility] AGAP 9 2 - 16 [facility] BUN 15 7 - 23 mg/dL [facility] GLUCOSE 107 70 - 110 mg/dL [facility] CREATININE 0.77 0.60 - 1.25 mg/dL [facility] CALCIUM 9.7 8.6 - 10.6 mg/dL [facility] eGFR 104.9 mL/min/1.73m2 [facility] Calculation [facility] eGFR 127.1 mL/min/1.73m2 [facility] Calculation [facility] ([facility]) Specimen Blood - ARM, LEFT Narrative Performed At Association of Glomerular Filtration Rate (GFR) and Staging of Kidney Disease* [facility] + + + + [facility] | GFR (mL/min/1.73 m2)| With Kidney Damage|Without [...] tests). Performing Organization Address City/State/Zipcode Phone Number [facility] CLIA: [id number], [address] [place] [address] [facility] * CT HEAD WO CONTRAST (07/20/2019 12:43 AM CDT) Specimen Impressions Performed At Impression: PACS/VR/DOSE No CT evidence for acute intracranial abnormality. RL: [id number] AFC: [id number] Narrative Performed At Indication: Syncope PACS/VR/DOSE Comparison: None Technique: Axial images of the head were performed without administration of intravenous contrast material. CT scan was performed according to ALARA (as low as reasonably achievable) principles. Findings: No acute intracranial abnormality is appreciated. Specifically, there is no acute intracranial hemorrhage, mass, mass effect, extra-axial fluid collection or hydrocephalus. The visualized paranasal sinuses are clear. No middle ear or mastoid effusion is appreciated. There is no calvarial fracture. Procedure Note [facility], Radiant Results Inft User - 07/20/2019 1:06 AM CDT Indication: Syncope Comparison: None Technique: Axial images of the head were performed without administration of intravenous contrast material. CT scan was performed according to ALARA (as low as reasonably achievable) principles. Findings: No acute intracranial abnormality is appreciated. Specifically, there is no acute intracranial hemorrhage, mass, mass effect, extra-axial fluid collection or hydrocephalus. The visualized paranasal sinuses are clear. No middle ear or mastoid effusion is appreciated. There is no calvarial fracture. IMPRESSION Impression: No CT evidence for acute intracranial abnormality. RL: [id number] AFC: [id number] Performing Organization Address [facility] Phone Number PACS/VR/DOSE * XR CHEST 1 VW (07/20/2019 12:43 AM CDT) Specimen Impressions Performed At Impression: PACS/VR/DOSE No radiographic evidence for acute cardiopulmonary disease. RL: [id number] AFC: [id number] Narrative Performed At Indication: Atrial fibrillation PACS/VR/DOSE Comparison: Chest dated 06/11/2019 Findings: Single AP view of the chest. The cardiopericardial silhouette is within normal limits. The lungs are clear bilaterally. The visualized bony thorax is intact. Procedure Note [facility], Radiant Results Inft User - 07/20/2019 1:18 AM CDT Indication: Atrial fibrillation Comparison: Chest dated 06/11/2019 Findings: Single AP view of the chest. The cardiopericardial silhouette is within normal limits. The lungs are clear bilaterally. The visualized bony thorax is intact. IMPRESSION Impression: No radiographic evidence for acute cardiopulmonary disease. RL: [id number] AFC: [id number] Performing Organization Address [facility]/Zipcode Phone Number PACS/VR/DOSE * EXTRA TUBE LT. GREEN (07/19/2019 10:02 PM CDT) Specimen Blood Performing Organization Address City/State/Zipcode Phone Number [facility] CLIA: [id number], [address] [place] [address] [facility] * CBC WITH DIFFERENTIAL (07/19/2019 10:02 PM CDT) WBC 5.75 4.20 - 10.70 [facility] 10*3/L [facility] RBC 4.36 4.26 - 5.52 10*6/L [facility] HGB 13.8 12.2 - 16.4 g/dL [facility] HCT 40.5 38.4 - 49.3 % [facility] MCV 92.9 81.7 - 95.6 fL [facility] MCH 31.7 26.1 - 32.7 pg [facility] MCHC 34.1 31.2 - 35.0 g/dL [facility] RDW-SD 41.4 38.5 - 51.6 fL [facility] RDW-CV 12.0 (L) 12.1 - 15.4 % [facility] PLT 174 150 - 328 10*3/L [facility] MPV 10.7 9.8 - 13.0 fL [facility] NRBC/100 WBC 0.0 0.0 - 10.0 /100 WBCs [facility] NRBC x10^3 <0.01 10*3/L [facility] GRAN MAT (NEUT) 56.8 % [facility] % [facility] IMM GRAN % 0.20 % [facility] LYMPH % 26.8 % [facility] MONO % 14.1 % [facility] EOS % 1.6 % [facility] BASO % 0.5 % [facility] GRAN MAT 3.27 1.99 - 6.95 10*3/uL [facility] x10^3(ANC) [facility] IMM GRAN x10^3 <0.03 0.00 - 0.06 10*3/uL [facility] LYMPH x10^3 1.54 1.09 - 3.23 10*3/uL [facility] MONO x10^3 0.81 0.36 - 1.02 10*3/uL [facility] EOS x10^3 0.09 0.06 - 0.53 10*3/uL [facility] BASO x10^3 0.03 0.01 - 0.09 10*3/uL [facility] Specimen Blood - ARM, RIGHT Performing Organization Address City/State/Zipcode Phone Number [facility] CLIA: [id number], [address] [place] [address] [facility] * TROPONIN I (07/19/2019 10:02 PM CDT) TROPONIN I 0.003 <=0.034 ng/mL [facility] Specimen Blood - ARM, RIGHT Narrative Performed At Equal or Less than 0.034 ng/ml---Normal [facility] Note: Cardiac troponin begins to rise 3-4 hours after the onset of ischemia. [facility] Repeat in 4-6 hours if the sample was drawn within 3-4 hours of the onset of the BAYARD symptom and found normal. Between 0.035 and [...] patient's use of biotin. Performing Organization Address City/State/Rust[employer] Phone Number [facility] CLIA: [id number], [address] [place] [address] [facility] * BASIC METABOLIC PANEL (NA, K, CL, CO2, GLUCOSE, BUN, CREATININE, CA) (07/19/2019 10:02 PM CDT) NA 137 135 - 145 mmol/L [facility] K 3.7 3.5 - 5.0 mmol/L [facility] CL 102 98 - 108 mmol/L [facility] CO2 TOTAL 28 23 - 31 mmol/L [facility] AGAP 7 2 - 16 [facility] BUN 15 7 - 23 mg/dL [facility] GLUCOSE 93 70 - 110 mg/dL [facility] CREATININE 0.80 0.60 - 1.25 mg/dL [facility] CALCIUM 9.6 8.6 - 10.6 mg/dL [facility] eGFR 100.4 mL/min/1.73m2 [facility] Calculation [facility] ([facility] eGFR 121.6 mL/min/1.73m2 [facility] Calculation [facility] ([facility]) Specimen Blood - ARM, RIGHT Narrative Performed At Association of Glomerular Filtration Rate (GFR) and Staging of Kidney Disease* [facility] + + + + [facility] | GFR (mL/min/1.73 m2)| With Kidney Damage|Without [...] tests). Performing Organization Address City/State/Zipcode Phone Number [facility] CLIA: [id number], [address] [place] [address] [facility] documented in this encounter Visit Diagnoses Diagnosis Syncope, unspecified syncope type - Primary documented in this encounter Administered Medications Action Date Dose Rate Site Medication Order MAR Action 07/20/2019 8:31 AM CDT 5 mg apixaban (ELIQUIS) tablet 5 mg Given 5 mg, Oral, BID, First dose on Thu07/20/19 at 0800, Until Discontinued, Routine documented in this encounter Insurance Type Payer Benefit Subscriber ID Effective Phone Address Plan / Dates Group PPO/POS [employer] OF [id number] 2016-P [phone] P O [facility] [id number] OUT OF [facility] [id number] documented as of this encounter"
--- OUTSIDE RECORDS SUMMARY | 2019-08-02 16:14 | XMS REPORT | Summary of Care ---
Author Author [facility] - Health Organization [facility] - Health Address Unknown Phone Unavailable Care Team Providers Care Material Stockkeeper Yard Name Role Phone Jessy Goldberg CENTRAL STERILE SUPPLY TECHNICIAN PCP Encounter Details Care Team Description Date Type Department Doctor Unassigned, [place] [address] [place] [address] 07/04/2019 Orders Only [address] [address] Allergies No Known Allergiesdocumented as of this encounter (statuses as of 07/20/2019) Medications End Date Status Medication Sig Dispensed Refills Start Date Suspended apixaban (ELIQUIS) 5 mg Take 1 tablet 180 tablet 1 tabletIndications: Atrial by mouth 2 9 fibrillation, controlled (two) times daily. documented as of this encounter (statuses as of 07/20/2019) Active Problems Problem Noted Date Syncope 07/19/2019 Atrial fibrillation with RVR 06/12/2019 Blood in stool 05/19/2019 Overview: Added automatically from request for surgery [id number] HTN (hypertension), benign 02/10/2019 documented as of [...] Date Type Specialty Rodolfo Porras MD [address] [facility] [id number] [place], [place] [address] 08/16/2019 Office Visit Cardiology Dimitri Keane MD [address] [place], [place] [phone] 09/14/2019 Office Visit Cardiology Jessy Goldberg, [facility] [address] [place] [address] 10/13/2019 Office Visit Family Medicine [...] Comments Procedure Name Priority Date/Time Associated Diagnosis DISABILITY/FMLA Routine 07/04/2019 12:01 AM CDT documented in this encounter Results Not on filedocumented in this encounter Insurance Type Payer Benefit Subscriber ID Effective Phone Address Plan / Dates Group PPO/POS BCBS OF [place] BCBS OF [id number] 2016-P [phone] P O [facility] [id number] OUT OF [facility] [id number] documented as of this encounter
--- OUTSIDE RECORDS SUMMARY | 2019-08-02 16:14 | XMS REPORT | Summary of Care ---
Author Author [facility] - Health Organization [facility] - Health Address Unknown Phone Unavailable Care Team Providers Care Product Lead Name Role Phone Yusuf Jessy FNP PCP Reason for Visit * Reason Comments Hospital F/U dehydration and syncope Encounter Details Care Team Description Date Type Department Jessy Goldberg FNP [address] [place] [address] Atrial fibrillation, controlled (Primary Dx) 07/25/2019 Office Visit [facility] [address] [facility] [address] [place] [address] Allergies No Known Allergiesdocumented as of this encounter (statuses as of 07/27/2019) Medications End Date Status Medication Sig Dispensed Refills Start Date Active apixaban (ELIQUIS) 5 mg Take 1 tablet 180 tablet 1 tabletIndications: Atrial by mouth 2 9 fibrillation, controlled (two) times daily. Active metoprolol tartrate 25 mg Take 12.5 mg 0 tablet by mouth daily. documented as of this encounter (statuses as of 07/27/2019) Active Problems Problem Noted Date Syncope 07/19/2019 Atrial fibrillation with RVR 06/12/2019 Blood in stool 05/19/2019 Overview: Added automatically from request for surgery [id number] HTN (hypertension), benign 02/10/2019 documented as of this encounter (statuses as of 07/27/2019) Immunizations Name Administration Dates Next Due TDAP [...] Signs Reading Time Taken Comments Vital Sign 106/70 07/25/2019 3:21 PM CDT Blood Pressure 57 07/25/2019 3:21 PM CDT Pulse - - Temperature 16 07/25/2019 3:21 PM CDT Respiratory Rate 97% 07/25/2019 3:21 PM CDT Oxygen Saturation - - Inhaled Oxygen Concentration 72.1 kg (159 lb) 07/25/2019 3:21 PM CDT Weight 170.2 cm (5' 7") 07/25/2019 3:21 PM CDT Height 24.9 07/25/2019 3:21 PM CDT Body Mass Index documented in this encounter Patient Instructions * Patient Instructions* Jessy Goldberg FNP - 07/25/2019 3:20 PM CDT Discharge Instructions for Atrial Fibrillation You [...] about whether you should eliminate caffeine. Avoid cscp-zyq-pspaiar medicines that have caffeine in them. Let [...] unusually fast hear tbeat Date Last Reviewed: 03/01/201619992116-3279 [employer]. [address] [place] [address] 5146 7. All rights reserved. This information is not intended as a substitute for pro fessional medical care. Always follow your healthcare professional's instruction s. documented in this encounter Progress Notes * Jessy Goldberg FNP - 07/25/2019 3:20 PM CDT Transitional Care Management: Scfd-dg-Bnke Visit 07/25/2019 Moisés Delgado is a 54 year old male that was admitted on 07/19/19 to [facility] ([facility] C[facility]. He was discharged on 07/20/19 with a dischar ge disposition of HR- Routine Discharge. Moisés is here today for a hospital fo llow-up/transitional care management visit. CC: Hospital F/U (dehydration and syncope) Patient here for the following condition: syncope, dizziness, dehydration Location: venous/arteril Duration: less than 1 week Severity: no pain Context: Patient admitted for near syncope and dizziness. He was admitted and ca rdiac work up was negative. He was told to increase his water intake and avoid c offee. He has not had any alcohol since last visit. Quality: improved Modifying factors: more fluids Associated symptoms: dizziness, light headed Timing: am=pm Patient was brought by self. Patient is speaking complete sentences and normal t one. Denies chest pain, shortness of breath, dizziness, weakness or palpitations . Allergies Moisés has No Known Allergies. Medications Outpatient Medications Prior to Visit Medication Sig Dispense Refill metoprolol tartrate 25 mg tablet Take 12.5 mg by mouth daily. apixaban (ELIQUIS) 5 mg tablet Take 1 tablet by mouth 2 (two) times daily. 1 80 tablet 1 No facility-administered medications prior to visit. Histories [...] file Gets together: Not on file Attends hoahaoism service: Not on file Active member of [...] normal. Nursing note and vitals reviewed. Vitals: 07/25/19 1521 BP: 106/70 BP Location: Left arm Patient Position: Sitting BP CUFF SIZE: Adult Medium Pulse: 57 Resp: 16 SpO2: 97% Weight: 159 lb (72.1 kg) Height: 5' 7" (1.702 m) Assessment/Plan Atrial fibrillation, controlled (primary encounter diagnosis) Plan: Follow up with cardiology I certify that the following are true: Discharge records, pending tests and lab results reviewed: Yes Medications reviewed and reconciled: Yes Patient education provided to: patient Follow-up arranged with other healthcare providers needed in patient's care: Yes Established applicable referrals: Yes Complexity of medical decision making is: Medium Linked Episodes Type: Episode: Status: Noted: Resolved: Last update: Updated by: TRANSITION OF CARE TCM Active 07/20/2019 07/22/2019 5:41 PM Melissa Jovel R N Comments:07/20/2019 documented in this encounter Plan of Treatment Care Team Description Date Type Specialty Rodolfo Porras MD [address] [facility] [id number] [place], [place] [phone] 08/16/2019 Office Visit Cardiology Dimitri Keane MD [address] [place] [address] 09/14/2019 Office Visit Cardiology Jessy Goldberg, POT [employer]KER [address] [facility] [place] [address] 10/13/2019 Office Visit Family Medicine [...] Plan / Dates Group PPO/POS BCBS OF [place] BCBS OF [id number] 2016-P [phone] P O [facility] [id number] OUT OF [facility] [address] (Home) [place] [address] documented as of this encounter
--- OUTSIDE RECORDS SUMMARY | 2019-08-02 16:14 | XMS REPORT | Summary of Care ---
Author Author [facility] - Health Organization [facility] - Health Address Unknown Phone Unavailable Care Team Providers Care Mechanical Engineering Intern Name Role Phone Jessy Goldberg [facility] [employer] PCP Reason for Visit * Reason Comments Transition Of Care Encounter Details Care Team Description Date Type Department Melissa Jovel, RN [address] [place] [id number] Transition Of Care 07/21/2019 Transition of [facility] Allergies No Known Allergiesdocumented as of this encounter (statuses as of 07/22/2019) Medications End Date Status Medication Sig Dispensed Refills Start Date Active apixaban (ELIQUIS) 5 mg Take 1 tablet 180 tablet 1 tabletIndications: Atrial by mouth 2 9 fibrillation, controlled (two) times daily. Active metoprolol tartrate 25 mg Take 25 mg by 0 tablet mouth daily. documented as of this encounter (statuses as of 07/22/2019) Active Problems Problem Noted Date Syncope 07/19/2019 Atrial fibrillation with RVR 06/12/2019 Blood in stool 05/19/2019 Overview: Added automatically from request for surgery [id number] HTN (hypertension), benign 02/10/2019 documented as of this encounter (statuses as of 07/22/2019) Immunizations Name Administration Dates Next Due TDAP [...] Team Description Date Type Specialty Jessy Goldberg, [place] [address] [place] [address] 07/25/2019 Office Visit Family Medicine Rodolfo Porras MD [address] [id number] [place] [address] 08/16/2019 Office Visit Cardiology Dimitri Keane MD [address] [place] [address] 09/14/2019 Office Visit Cardiology Jessy Goldberg, [place] [address] [place] [address] 10/13/2019 Office Visit Family Medicine [...] Group PPO/POS BCBS OF [place] BCBS OF [id number] 2016-P [phone] [address] [place] - [facility] [id number] OUT OF [facility] [id number] documented as of this encounter
--- OUTSIDE RECORDS SUMMARY | 2019-08-02 16:14 | XMS REPORT | Summary of Care ---
Author Author [facility] - Health Organization [facility] - Health Address Unknown Phone Unavailable Care Team Providers Care Financial Management Name Role Phone Jessy Goldberg DIPLOMA PHARMACY TECHNICIAN PCP Reason for Visit * Reason Comments Assessment Encounter Details Care Team Description Date Type Department Rodolfo Porras MD [address] [facility] [id number] [place], [place] [phone] Assessment 07/19/2019 Telephone [facility] Cardiology, [address] [address] Allergies No Known Allergiesdocumented as of this encounter (statuses as of 07/19/2019) Medications End Date Status Medication Sig Dispensed Refills Start Date Active apixaban (ELIQUIS) 5 mg Take 1 tablet 180 tablet 1 tabletIndications: Atrial by mouth 2 9 fibrillation, controlled (two) times daily. Active metoprolol tartrate 25 mg Take 25 mg by 0 tablet mouth daily. documented as of this encounter (statuses as of 07/19/2019) Active Problems Problem Noted Date Atrial fibrillation with RVR 06/12/2019 Blood in stool 05/19/2019 Overview: Added automatically from request for surgery [id number] HTN (hypertension), benign 02/10/2019 documented as of this encounter (statuses as of 07/19/2019) Immunizations Name Administration Dates Next Due TDAP [...] Date Type Specialty Rodolfo Porras MD [address] [facility] [id number] [place], [place] [phone] 08/16/2019 Office Visit Cardiology Dimitri Keane MD [address] [place], [place] [phone] 09/14/2019 Office Visit Cardiology Jessy Goldberg, DIPLOMA PHARMACY TECHNICIAN [address] [place] [address] 10/13/2019 Office Visit Family Medicine [...] Plan / Dates Group PPO/POS BCBS OF [place] BCBS OF [id number] 2016-P [phone] [address] [facility] [id number] OUT OF [place] [id number] documented as of this encounter
--- OUTSIDE RECORDS SUMMARY | 2019-08-02 16:14 | XMS REPORT | Summary of Care ---
Author Author [facility] - Health Organization [facility] - Health Address Unknown Phone Unavailable Care Team Providers Care Group Teacher Name Role Phone Yusuf Jessy FNP PCP Reason for Visit * Reason Comments Hospital F/U dehydration and syncope Encounter Details Care Team Description Date Type Department Jessy Goldberg FNP [address] [place] [address] Atrial fibrillation, controlled (Primary Dx) 07/25/2019 Office Visit [facility] [address] [facility] [address] [place] [address] Allergies No Known Allergiesdocumented as [...] Overview: Added automatically from request for surgery [id number] HTN (hypertension), benign 02/10/2019 documented as of [...] about whether you should eliminate caffeine. Avoid otbw-tio-qzjrjtu medicines that have caffeine in them. Let [...] unusually fast hear tbeat Date Last Reviewed: 03/01/201619997535-8096 [employer]. [address] [place] [address] 9796 7. All rights reserved. This information is not intended as a substitute for pro fessional medical care. Always follow your healthcare professional's instruction s. documented in this encounter Progress Notes * Jessy Goldberg FNP - 07/25/2019 3:20 PM CDT Transitional Care Management: Cbrr-ft-Rxyq Visit 07/25/2019 Moisés Delgado is a 54 year old male that was admitted on 07/19/19 to [facility] ([facility] CLC 7B. He was discharged on 07/20/19 [...] file Gets together: Not on file Attends latter-day service: Not on file Active member of [...] Type Specialty Rodolfo Porras MD [address] [facility] OR8817 [place], [place] [phone] 08/16/2019 Office Visit Cardiology Dimitri Keane MD [address] [place] [address] 09/14/2019 Office Visit Cardiology Jessy Goldberg, CONTAMINATED LAND CONSULTANT [address] [facility] [place] [address] 10/13/2019 Office Visit Family Medicine [...] Group PPO/POS BCBS OF [place] BCBS OF [id number] 2016-P [phone] P [address] [facility] [id number] OUT OF [facility] [address] (Home) [place] [address] documented as of this encounter
[2019-08-02] MEDS ORDERED: IOPAMIDOL 370 MG/ML 200 ML INFUS..BTL INJ ONE (16:15)
[2019-08-02] MEDS ORDERED: SODIUM CHLORIDE 0.9% 1000ML 1,000 ML ONE (16:16)
[2019-08-02] MEDS ORDERED: POTASSIUM CHLORIDE 20 MEQ TAB CR PO ONE (16:48)
[2019-08-02] MEDS: POTASSIUM CHLORIDE 20 MEQ TAB CR PO STA (16:49)
--- NOTE | 2019-08-02 17:05 | Diagnostic Imaging Report ---
EXAM: CT Chest WITH contrast- Pulmonary Embolism Protocol INDICATION: Shortness of breath COMPARISON: Chest radiograph of 07/19/2019 TECHNIQUE: Chest was scanned utilizing a multidetector helical scanner from the lung apex through the level of the diaphragm after administration of IV contrast. Thin section reconstructions were obtained with special concentration on the pulmonary arteries. Coronal and sagittal reformations were obtained. Pulmonary embolism protocol was performed. IV CONTRAST: 100 cc of Isovue 370 RADIATION DOSE: Total DLP: 463.8 mGy*cm Dose modulation, iterative reconstruction, and/or weight based adjustment of the mA/kV was utilized to reduce the radiation dose to as low as reasonably achievable. COMPLICATIONS: None FINDINGS: LINES/ TUBES: None. PULMONARY ARTERIES: No filling defect is identified within the pulmonary arteries to the segmental level. The subsegmental pulmonary arteries are not well opacified. Main pulmonary artery measures 2.8 cm in diameter. LUNGS AND AIRWAYS: The central airways are patent. No focal consolidation. No pulmonary edema. No suspicious pulmonary nodules. Minimal bibasilar dependent subsegmental atelectasis. PLEURA: The pleural spaces are clear. HEART AND MEDIASTINUM: The partially visualized thyroid gland appears unremarkable. No supraclavicular, axillary, mediastinal, or hilar lymphadenopathy. The heart is not enlarged. No pericardial effusion. No evidence of right heart strain. UPPER ABDOMEN: No focal abnormality in the partially visualized liver, gallbladder, spleen, kidneys, pancreas, or adrenals. BONES: No acute osseous injury. No suspicious lytic or blastic lesions. SOFT TISSUES: Unremarkable. IMPRESSION: No pulmonary embolism. Signed by: Efrain Jonas MD on 08/02/2019 5:02 PM
[2019-08-02] MEDS ORDERED: LISINOPRIL10 MG PO (17:59)
== END 2019-08-02 18:11 | disposition home or self-care (01) ==
LOC: FSED 15:29
DX: E87.6 Hypokalemia (principal); R42 Dizziness and giddiness; R00.2 Palpitations; R06.4 Hyperventilation; I10 Essential (primary) hypertension; I48.0 Paroxysmal atrial fibrillation; Z79.01 Long term (current) use of anticoagulants
CPT/HCPCS: 71260; 80053; 81003; 82553; 83880; 84484; 85025; 85379; 87400; 93005; 99284; J7030; Q9967